=== PATIENT | male | born 1955 | race Caucasian/White ===

== ENCOUNTER → 2017-03-08 14:43 | Emergency (ER) | payer OTHER ==
[~2017-03-08 14:43] MED LIST: diPHENhydraMINE PO* 25 MG PO ONE; predniSONE TAB* 20 MG ONE; predniSONE TAB* 20 MG PO ONE
[2017-03-08 14:49] VITALS: BP 159/91
--- NOTE | 2017-03-08 22:17 | ED ---
Martin Harrison Thomas, scribed for Mariah Holloway MD on 03/08/17 at 1747 . Allergic Reaction/Systemic - HPI Summary HPI Summary: The patient is a 61 year old male presenting to the emergency department with an allergic reaction that began earlier today and is relieved by time of examination in the emergency department. He complains of mild upper lip swelling and facial swelling. He denies tongue swelling, throat tightening, headache, double vision, edema, and shortness of breath. He is on Lisinopril. He took a muscle relaxer yesterday. The patient denies fever, eye erythema, ear ache, chest pain, abdominal pain, dysuria, hematuria, edema, rashes, bruises, anxiety, and depression. - History of Current Complaint Chief Complaint: EDAllergicReaction Time Seen by Provider: 03/08/17 16:52 Hx Obtained From: Patient Onset/Duration: Started hours ago - earlier today, Resolved Timing: Constant, Lasting Minutes Severity Initially: Mild Severity Currently: None Pain Intensity: 0 Pain Scale Used: 0-10 Numeric Location: Discrete @ - face and lips Character: Swelling Alleviating Factor(s): Other - Relieved by time of examination Associated Signs And Symptoms: Positive: Other: - mild upper lip swelling, facial swelling; NEGATIVE: tongue swelling, throat tightening, headache, double vision, edema, and shortness of breath, fever, eye erythema, ear ache, chest pain, abdominal pain, dysuria, hematuria, edema, rashes, bruises, anxiety, and depression. - Allergies/Home Medications Allergies/Adverse Reactions: Allergies Allergy/AdvReac Type Severity Reaction Status Date / Time No Known Allergies Allergy Verified 07/30/13 22:15 PMH/Surg Hx/FS Hx/Imm Hx Endocrine/Hematology History: Reports: Hx Anemia - Pt stated he had blood transfusion. He can't remember why. Denies: Hx Anticoagulant Therapy, Hx Diabetes, Hx Thyroid Disease Cardiovascular History: Reports: Hx Hypercholesterolemia, Hx Hypertension Denies: Hx Pacemaker/ICD Respiratory History: Reports: Other Respiratory Problems/Disorders - current smoker Denies: Hx Asthma, Hx Chronic Obstructive Pulmonary Disease (COPD) GI History: Reports: Hx Gastrointestinal Bleed History: Denies: Hx Renal Disease Musculoskeletal History: Reports: Hx Gout Neurological History: Denies: Hx Dementia, Hx Seizures Psychiatric History: Reports: Hx Anxiety, Hx Substance Abuse - alcohol - Immunization History Date of Tetanus Vaccine: UTD Date of Influenza Vaccine: NO Infectious Disease History: No Infectious Disease History: Reports: Hx Hepatitis - Hep C, remission per patient Denies: Hx Human Immunodeficiency Virus (HIV), Traveled Outside the [place] in Last 30 Days - Family History Known Family History: Positive: Other - Patient denies relevant FHx - Social History Alcohol Use: Daily Alcohol Amount: 6 pack per week Hx Substance Use: No Substance Use Type: Reports: None Hx Tobacco Use: Yes Smoking Status (MU): Current Every Day Smoker Review of Systems Negative: Fever Negative: Erythema Positive: Other - Mild upper lip swelling, facial swelling; NEGATIVE: tongue swelling, throat tightneing. Negative: Ear Ache Negative: Chest Pain Negative: Shortness Of Breath Negative: Abdominal Pain Negative: dysuria, hematuria Negative: Edema Negative: Rash, Bruising Negative: Headache Negative: Anxious, Depressed All Other Systems Reviewed And Are Negative: No Physical Exam - Summary Physical Exam Summary: Appearance: Alert, conversive, nontoxic appearing Skin: Warm, dry, no mottling, no rashes, no contusions HEENT: EOMI, PERRL, moist mucous membranes Neck: No masses on the neck, supple Respiratory: Clear to auscultation, breath sounds present, no rales, no rhonchi , no wheezes Cardiovascular: RRR, pulses are symmetrical in both lower and upper extremities Abdomen: Soft, non-tender Bowel Sounds: Present Musculoskeletal: No CVA tenderness, no obvious deformity, moving all extremities in a grossly normal manner Neurological: A&Ox3, CN II-XII Intact, moving all extremities symmetrically Psychiatric: Normal affect and mood Triage Information Reviewed: Yes Vital Signs On Initial Exam: Initial Vitals Temp Pulse Resp BP Pulse Ox 98.7 F 67 18 159/91 99 03/08/17 14:45 03/08/17 14:45 03/08/17 14:45 03/08/17 14:45 03/08/17 14:45 Vital Signs Reviewed: Yes Diagnostics - Vital Signs Vital Signs Temp Pulse Resp BP Pulse Ox 03/08/17 14:45 98.7 F 67 18 159/91 99 - Laboratory Lab Statement: Any lab studies that have been ordered have been reviewed, and results considered in the medical decision making process. Allergic Reaction Course/Dx - Course Assessment/Plan: Patient had mild swelling to the upper lip. He will be discharged home to follow up regarding his Lisinopril. He was instructed to stop taking his Lisinopril. - Diagnoses Provider Diagnoses: Allergic reaction Discharge - Discharge Plan Condition: Stable Disposition: HOME Prescriptions: Prednisone 60 mg PO DAILY #12 tab Patient Education Materials: General Allergic Reaction (ED) Referrals: No Primary Care Phys,NOPCP [Primary Care Provider] - Additional Instructions: stop taking lisinopril. discuss with your doctor other medications for high blood pressure. take the benadryl and prednisone as instructed. return if worse or any new symptoms. It is important to follow up with your primary care physician. The documentation as recorded by the Martin canseco Thomas accurately reflects the service I personally performed and the decisions made by me, Mariah Holloway MD.
== END | disposition home or self-care (01) ==
LOC: ED 14:43
DX: T78.40XA Allergy, unspecified, initial encounter (principal); F17.200 Nicotine dependence, unspecified, uncomplicated
CPT/HCPCS: 99282; J7512

== ENCOUNTER 2017-08-04 17:06 | Observation (INO) | payer OTHER ==
[2017-08-04] MEDS ORDERED: NS 0.9% 1000 ML* 1,000 ML IV ONE (17:28)
[2017-08-04 17:45] LABS: ABS Basophils 0 10^3/ul (0-0.2); ABS Eosinophils 0 10^3/ul (0-0.6); ABS Lymphocytes 0.6 10^3/ul (1.0-4.8); ABS Monocytes 0.8 10^3/ul (0-0.8); ABS Neutrophils 4.7 10^3/ul (1.5-7.7); ABS Nucleated RBC 0 10^3/ul; Eosinophil % 0.5 % (0-6); Hematocrit 36 % (42-52); Hemoglobin 12.1 g/dl (14.0-18.0); Lymphocyte % 9.9 % (25-47); Mean Corpuscular HGB Conc 34 g/dl (31-36); Mean Corpuscular Hemoglobin 29 pg (27-31); Mean Corpuscular Volume 84 fL (80-94); Mean Platelet Volume 8.6 um3 (7.4-10.4); Nucleated Red Blood Cells % 0.1; Platelet Count 155 10^3/ul (150-450); Red Blood Count 4.24 10^6/ul (4.00-5.40); Red Cell Distribution Width 16 % (10.5-15); White Blood Count 6.1 10^3/ul (3.5-10.8)
[2017-08-04 17:54] LABS: INR 0.95 (0.77-1.02)
[2017-08-04 18:01] LABS: EGFR Non-African American 95.8 (>60)
--- NOTE | 2017-08-04 18:43 | RAD ---
INDICATION: Upper abdominal pain. Recent gallbladder sonogram in the straightening cholelithiasis COMPARISON: Complete abdominal sonogram June 15, 2017 TECHNIQUE: Longitudinal and transverse scans of the right upper quadrant were obtained. Doppler interrogation of the hepatic and portal venous system was performed. FINDINGS: Liver: The liver is normal in size. There is increased echogenicity compatible with hepatic steatosis. There are no focal masses. The liver measures 17.1 cm in cephalocaudal dimension. Vessels: There is normal hepatic and portal venous flow. Bile ducts: There is no evidence of intrahepatic or extrahepatic ductal dilatation. The common duct measures 0.5 cm. Gallbladder: There is cholelithiasis with a dominant gallstone which may be stuck in the neck of the gallbladder. There is also small amount of biliary sludge. The gallbladder wall is thickened measuring 0.7 cm. The patient is tender over the gallbladder. Pancreas: The visualized pancreas appears normal Right kidney: The right kidney is normal in size and echogenicity. There are no masses or calculi. There is no evidence of hydronephrosis. The right kidney measures 10.3 x 5.2 x 5.3 cm. IVC and aorta: The aorta and superior vena cava appear normal. Fluid: There is no ascites. Other: None. IMPRESSION: CHOLELITHIASIS WITH SONOGRAPHIC FINDINGS SUGGESTIVE OF ACUTE CHOLECYSTITIS
[2017-08-04 19:43] LABS: Urine Appearance Clear; Urine Blood 1+ (Negative); Urine Color Straw; Urine Ketones Negative (Negative); Urine Protein Negative (Negative); Urine Red Blood Cell Trace(0-2/hpf) (Absent); Urine Specific Gravity 1.002 (1.010-1.030); Urine Urobilinogen Negative (Negative); Urine White Blood Cell Trace(0-5/hpf) (Absent)
[2017-08-04] MEDS ORDERED: Metoclopramide IV* 5 MG/ML 2 ML VIAL IV ONE (19:47)
[2017-08-04] MEDS ORDERED: Morphine VIAL* 4 MG/ML VIAL (1 ml vial) IV ONE (19:47)
[2017-08-04] MEDS ORDERED: Ondansetron 40 MG VIAL* 2 MG/ML 20 ML VIAL IV PRN (20:03)
[2017-08-04] MEDS ORDERED: Zosyn per Pharmacy* NOTE FOLLOW UP PRN (20:54)
[2017-08-04] MEDS ORDERED: Zosyn 3.375 GM IV - ED ONCE IVPB ONE ×2 (21:00)
[2017-08-04] MEDS ORDERED: Piperacillin/Tazobactam VIAL*) 3.375 GM in NS 0.9% 100 ML* 100 ML IVPB SCH (21:00)
--- NOTE | 2017-08-04 21:22 | ED ---
Jose Ramon Harrison Natalie, scribed for Nina Crowder MD on 08/04/17 at 1813 . Abdominal Pain/Male - HPI Summary HPI Summary: The patient is a 61 y/o M presenting to [facility] c/o RUQ abd pain starting 07/30/17 and worsening into today. The pain started in his LUQ, subsided a few days later , and then moved towards the umbilical and RUQ region of his abd with worse pain than before. He describes the pain as a stabbing pain that is rated 10/10 in severity. He took Pepto Bismol to no relief. He has had normal flatulence. He denies fever, chills, nausea, vomiting, and diarrhea. He has not had a decreased in appetite, but he last ate pie and milk at 10:00 this morning. The pt's last bowel movement was yesterday, although he normally goes everyday. He denies any similar experiences with this type of pain. - History of Current Complaint Chief Complaint: EDAbdPain Stated Complaint: ABD PAIN Hx Obtained From: Patient Onset/Duration: Sudden Onset, Lasting Days, Still Present Timing: Lasting Days Severity Initially: Moderate Severity Currently: Severe Pain Intensity: 10 Pain Scale Used: 0-10 Numeric Location: Discrete At: RUQ Radiates: No Character: Sharp Aggravating Factor(s): Nothing Alleviating Factor(s): Nothing Associated Signs And Symptoms: Positive: Negative - chills. Negative: Fever, Decreased Appetite, Nausea, Vomiting, Diarrhea - Allergies/Home Medications Allergies/Adverse Reactions: Allergies Allergy/AdvReac Type Severity Reaction Status Date / Time No Known Allergies Allergy Verified 07/30/13 22:15 Home Medications: Home Medications NK [No Home Medications Reported] 08/04/17 [History Confirmed 08/04/17] PMH/Surg Hx/FS Hx/Imm Hx Endocrine/Hematology History: Reports: Hx Anemia - Pt stated he had blood transfusion. He can't remember why. Denies: Hx Anticoagulant Therapy, Hx Diabetes, Hx Thyroid Disease Cardiovascular History: Reports: Hx Hypercholesterolemia, Hx Hypertension Denies: Hx Pacemaker/ICD Respiratory History: Reports: Other Respiratory Problems/Disorders - current smoker Denies: Hx Asthma, Hx Chronic Obstructive Pulmonary Disease (COPD) GI History: Reports: Hx Gastrointestinal Bleed History: Denies: Hx Renal Disease Musculoskeletal History: Reports: Hx Gout Neurological History: Denies: Hx Dementia, Hx Seizures Psychiatric History: Reports: Hx Anxiety, Hx Substance Abuse - alcohol - Immunization History Date of Tetanus Vaccine: UTD Date of Influenza Vaccine: NO Infectious Disease History: No Infectious Disease History: Reports: Hx Hepatitis - Hep C, remission per patient Denies: Hx Human Immunodeficiency Virus (HIV), Traveled Outside the [place] in Last 30 Days - Family History Known Family History: Negative: Cardiac Disease, Hypertension, Diabetes - Social History Alcohol Use: Daily Alcohol Amount: 6 pack per week Hx Substance Use: No Substance Use Type: Reports: None Hx Tobacco Use: Yes Smoking Status (MU): Current Every Day Smoker Review of Systems Negative: Fever, Chills Positive: Abdominal Pain - RUQ. Negative: Vomiting, Diarrhea, Nausea All Other Systems Reviewed And Are Negative: Yes Physical Exam - Summary Physical Exam Summary: Appearance: Well-appearing, Well-nourished Skin: Warm Eyes: Normal ENT: Normal Neck: Supple, nontender Respiratory: Clear to auscultation Cardiovascular: Regular rate, regular rhythm. Normal S1, S2. Abdomen: Moderate to severe RUQ tenderness with mild rebound and gaurding, hypoactive bowel sounds in all quadrants Musculoskeletal: Normal, Strength/ROM Intact Neurological: Normal, A&Ox3 Psychiatric: Normal General: No acute distress Triage Information Reviewed: Yes Vital Signs On Initial Exam: Initial Vitals Temp Pulse Resp BP Pulse Ox 98 F 64 20 154/95 96 08/04/17 17:12 08/04/17 17:12 08/04/17 17:12 08/04/17 17:12 08/04/17 17:12 Vital Signs Reviewed: Yes Diagnostics - Vital Signs Vital Signs Temp Pulse Resp BP Pulse Ox 08/04/17 17:12 98 F 64 20 154/95 96 - Laboratory Lab Results: Lab Results 08/04/17 08/04/17 Range/Units 17:36 17:36 WBC 6.1 (3.5-10.8) 10^3/ul RBC 4.24 (4.00-5.40) 10^6/ul Hgb 12.1 L (14.0-18.0) g/dl Hct 36 L (42-52) % MCV 84 (80-94) fL MCH 29 (27-31) pg MCHC 34 (31-36) g/dl RDW 16 H (10.5-15) % Plt Count 155 (150-450) 10^3/ul MPV 8.6 (7.4-10.4) um3 Neut % (Auto) 76.9 (38-83) % Lymph % (Auto) 9.9 L (25-47) % Petroleum % (Auto) 12.4 H (0-7) % Eos % (Auto) 0.5 (0-6) % Baso % (Auto) 0.3 (0-2) % Absolute Neuts (auto) 4.7 (1.5-7.7) 10^3/ul Absolute Lymphs (auto) 0.6 L (1.0-4.8) 10^3/ul Absolute Monos (auto) 0.8 (0-0.8) 10^3/ul Absolute Eos (auto) 0 (0-0.6) 10^3/ul Absolute Basos (auto) 0 (0-0.2) 10^3/ul Absolute Nucleated RBC 0 10^3/ul Nucleated RBC % 0.1 INR (Anticoag Therapy) 0.95 (0.77-1.02) APTT 39.7 H (26.0-36.3) seconds Result Diagrams: 08/04/17 17:36 08/04/17 17:36 Lab Statement: Any lab studies that have been ordered have been reviewed, and results considered in the medical decision making process. - Ultrasound No standard instances Ultrasound Interpretation: Positive (See Comments) - Gallbladder US: Cholelithiasis with sonographic findings suggestive of acute cholecystitis. ED physician has reviewed this report. Ultrasound Interpretation Completed By: Radiologist Abdominal Pain Fem Course/Dx - Course Assessment/Plan: RUQ pain- sono showed acute cholecystitis and dominant stone stuck in neck of GB, GB wall is 0.7cm - Diagnoses Provider Diagnoses: Acute cholecystitis due to biliary calculus - Provider Notifications Discussed Care Of Patient With: Jorge Luis Garcia Time Discussed With Above Provider: 19:37 - I spoke with Dr. Garcia about the pt 's US results. He agreed to admit the pt for cholecystitis. Discharge - Sign-Out/Discharge Documenting (check all that apply): Discharge/Admit/Transfer - Dr. Garcia accepts the pt for admission to [facility] [place] Discharge Plan Condition: Stable Disposition: ADMITTED TO [facility] Referrals: Wendie Seymour, CLAM SHUCKING MACHINE TENDER [Primary Care Provider] - - Billing Disposition and Condition Condition: STABLE Disposition: Admitted to [facility] The documentation as recorded by the Jose Ramon canseco Natalie accurately reflects the service I personally performed and the decisions made by , Nina Crowder MD.
[2017-08-04] MEDS: NS 0.9% 1000 ML* 1,000 ML IV SCH (22:09)
[2017-08-04] MEDS: HYDROmorphone INJ* 2 MG/ML CARPUJECT SYRINGE IV PRN ×2 (22:29→23:34)
--- NOTE | 2017-08-04 22:29 | HP ---
CC: Wendie Seymour NP in [place] * HISTORY AND PHYSICAL: DATE OF ADMISSION: 08/04/17 CHIEF COMPLAINT: Abdominal pain. HISTORY OF PRESENT ILLNESS: The patient is a 61-year-old male who has had intermittent right upper quadrant abdominal pain for the last week and then over the last 24 hours or so, it is becoming increasingly intense, and he therefore reported to the emergency room. He has had no nausea, no vomiting, no change in the color of the stool or urine. He does not think he has had excessive gassiness, belching, or bloating. He has not had radiation of the pain to the back or elsewhere. He has not had fever or chills. No accident, injury, or trauma. PAST MEDICAL HISTORY: His past medical history, he quotes, is quite benign. He denies any chronic medical illnesses. Denies prior surgeries. He does admit to some arthritis. MEDICATIONS: He denies regular medications. ALLERGIES: Denies medical allergies. SOCIAL HISTORY: He is here with his significant other. He works as a bench scientist. He smokes regularly. He gave up drinking and drugs years ago. FAMILY HISTORY: Noncontributory. REVIEW OF SYSTEMS: Negative for chest pain, heart pain, angina pain, or heart attack. No emphysema, bronchitis, or chronic lung disease. He denies hepatitis , jaundice, or previous biliary disease. He denies any gastrointestinal disease. No ulcers or Crohn's disease or other chronic issues. He denies disease. No dysuria or kidney stones or kidney infections in the past. He does admit to arthritis in his knees. He sometimes takes nonsteroidal if he has pain. The neuromuscular history is benign other than that and the neuropsych history is benign. PHYSICAL EXAMINATION GENERAL: He is a well-developed, well-nourished, slender gentleman, appears a little older than stated age. VITAL SIGNS: Show a temperature of 98, heart rate 64, regular; respirations 20 , unlabored; O2 saturation 96%; blood pressure 154/95. NECK: Without any adenopathy. LUNGS: Relatively clear. He has a few little inspiratory wheezes; it sounds more like upper airway. HEART: Regular. No abnormal sounds. ABDOMEN: Soft. Exquisitely tender in the right subcostal region with positive Trivedi's sign. No rebound tenderness. No palpable masses or hernias. Bowel sounds are somewhat decreased. EXTREMITIES: Well perfused and without edema. SKIN: Warm, well perfused. He is not diaphoretic. He is not jaundiced. DIAGNOSTIC STUDIES/LAB DATA: Laboratory studies show normal white blood count , hemoglobin is 12.1, platelet count 155. He does have a left shift. INR is normal. Chemistries showed normal electrolytes. Lactic acid somewhat elevated at 2.2 and bilirubin is normal. Alkaline phosphatase is elevated at 289. C- reactive protein is 60. He has had a gallbladder ultrasound, which shows acute inflammation of the gallbladder with quite a bit of tenderness and what appears to be a stone possibly impacted in the neck of the gallbladder. IMPRESSION: A 61-year-old male who has had some drinking and drug use in the past, but claims to be clean for a quite while now, who has evidence of acute cholecystitis and cholelithiasis. I discussed this with him, and given the level of his pain and the acute inflammation, I think he needs to come in the hospital for pain medicine and antibiotics and he will need a laparoscopic cholecystectomy. He understands all these issues and is agreeable to that approach. [id number]/[facility] #: [id number] PAUL
[2017-08-05] MEDS: Piperacillin/Tazobactam VIAL*) 3.375 GM in NS 0.9% 100 ML* 100 ML IVPB SCH ×3 (01:46→17:10)
[2017-08-05] MEDS: HYDROmorphone INJ* 2 MG/ML CARPUJECT SYRINGE IV PRN ×4 (01:50→08:00)
[2017-08-05] MEDS ORDERED: HYDROmorphone INJ* 2 MG/ML CARPUJECT SYRINGE ONE (02:08)
[2017-08-05 05:47] LABS: Hematocrit 35 % (42-52); Hemoglobin 11.8 g/dl (14.0-18.0); Mean Corpuscular HGB Conc 34 g/dl (31-36); Mean Corpuscular Hemoglobin 28 pg (27-31); Mean Corpuscular Volume 85 fL (80-94); Mean Platelet Volume 8.9 um3 (7.4-10.4); Platelet Count 154 10^3/ul (150-450); Red Blood Count 4.14 10^6/ul (4.00-5.40); Red Cell Distribution Width 17 % (10.5-15); White Blood Count 8.9 10^3/ul (3.5-10.8)
[2017-08-05 05:51] LABS: ABS Nucleated RBC 0 10^3/ul; Eosinophil % 1.7 % (0-6); Lymphocyte % 11.9 % (25-47); Nucleated Red Blood Cells % 0.1
[2017-08-05 05:52] LABS: ABS Basophils 0 10^3/ul (0-0.2); ABS Eosinophils 0.2 10^3/ul (0-0.6); ABS Lymphocytes 1.1 10^3/ul (1.0-4.8); ABS Monocytes 0.9 10^3/ul (0-0.8); ABS Neutrophils 6.7 10^3/ul (1.5-7.7)
[2017-08-05 06:05] LABS: EGFR Non-African American 106.2 (>60)
[2017-08-05] MEDS: NS 0.9% 1000 ML* 1,000 ML IV SCH ×2 (06:42→17:51)
[2017-08-05] MEDS ORDERED: fentaNYL* 50 MCG/ML 2 ML VIAL (100 MCG VIAL) ONE (12:04)
[2017-08-05] MEDS ORDERED: Midazolam* 1 MG/ML 5 ML VIAL (5 MG) ONE (12:05)
[2017-08-05] MEDS ORDERED: Atracurium* 10 MG/ML 10 ML VIAL ONE (12:05)
[2017-08-05] MEDS ORDERED: Bupivacaine 0.5% SDV PF* 30ML VIAL ONE (12:45)
[2017-08-05] MEDS ORDERED: Propofol* 10 MG/ML 20 ML BTL IV PUSH ONE (13:31)
[2017-08-05] MEDS ORDERED: Dexamethasone IV* 4 MG/ML 1 ML (4 MG) ONE (13:31)
[2017-08-05] MEDS ORDERED: Glycopyrrolate IV* 0.2 MG/ML 1 ML VIAL ONE (13:31)
[2017-08-05] MEDS ORDERED: Ropivacaine (OR use only) 2 MG/ML 10 ML ONE (13:31)
[2017-08-05] MEDS ORDERED: PROCHLORPERAZINE INJ 5 MG/ML 2 ML VIAL ONE (13:31)
[2017-08-05] MEDS ORDERED: oxyCODONE/Acetamin 5/325 MG* TAB PO PRN (13:33)
[2017-08-05] MEDS ORDERED: Naloxone* 0.4 MG/ML 1 ML VIAL IV PRN (13:33)
[2017-08-05] MEDS ORDERED: Morphine INJ* 2 MG/ML 1 ML CARPUJECT IV PRN (13:33)
[2017-08-05] MEDS ORDERED: fentaNYL* 50 MCG/ML 2 ML VIAL (100 MCG VIAL) IV PRN (13:33)
[2017-08-05] MEDS ORDERED: DiMENhydriNATE IV* 50 MG/ML VIAL IV PUSH PRN (13:33)
[2017-08-05] MEDS ORDERED: Lidocaine 2% PF * 5 ML VIAL ONE (13:39)
[2017-08-05] MEDS ORDERED: Neostigmine Methylsulfate* 1 MG/ML 10 ML VIAL (1 mg/ml) ONE (13:39)
[2017-08-05] MEDS ORDERED: Labetalol IV* 5 MG/ML 20 ML VIAL ONE (14:13)
[2017-08-05] MEDS ORDERED: oxyCODONE/Acetamin 5/325 MG* TAB ONE (17:42)
[2017-08-05] MEDS: oxyCODONE/Acetamin 5/325 MG* TAB PO PRN (21:04)
--- NOTE | 2017-08-05 22:00 | OP ---
CC: Wendie Seymour NP * DATE OF OPERATION: 08/05/17 - ROOM #351 DATE OF : 57 SURGEON: Jorge Luis Garcia MD TELEPHONE INSTRUMENT SUPERVISOR: None. ANESTHESIOLOGIST: Dr. Cantrell. ANESTHESIA: General anesthetic, local infiltration by the surgeon. PRE-OP DIAGNOSIS: Acute cholecystitis. POST-OP DIAGNOSIS: Acute cholecystitis. OPERATIVE PROCEDURE: Laparoscopic cholecystectomy. COMPLICATIONS: There were no complications. DRAINS: Luis Díaz. COUNTS: Sponge and instrument counts correct. ESTIMATED BLOOD LOSS: 100 mL. DESCRIPTION OF PROCEDURE: The patient was supine on the operative table. After adequate general anesthetic, compression stockings, Marie Hugger warmer, intravenous antibiotics, the abdomen was clipped and prepped with antiseptic, draped in a sterile fashion. Local infiltrative anesthesia was administered. A small umbilical incision was created. Bluntport cannula was placed. Insufflation was carried out with a carbon dioxide. Additional cannulae, 12 mm subxiphoid and 5 mm right upper quadrant, right anterior axillary line and placed through a small stab wounds under direct vision. The gallbladder was acutely inflamed. The omentum was peeled off of it. There was some fibrinous exudate. The gallbladder was drained of its bile. This was suctioned out and there was a lot of inflammation down at the neck of the gallbladder, so it was decided to do a top down dissection. The plane along the liver bed was inflammatory, so an actually kind of peeled off reasonably well until I was able to isolate the cystic artery and cystic duct, which were both clipped and divided. The gallbladder and the large stone were placed in retrieval bags and brought out through the epigastric site. The operative field was well irrigated with warm saline solution, free fluid was suctioned out. A VIKAS drain was placed into the abdomen and brought out through the lateral stab wound and placed down into the gutter. Hemostasis was eventually obtained with recurrent irrigation and some cautery until everything was in good condition. The cannulas were then removed. Pneumoperitoneum allowed to escape. The VIKAS drain was sewed in place using 3-0 Prolene. The two larger incisions had the fascia closed with 0 Vicryl and the skin in all cases with 5-0 Vicryl followed by Steri -Strips. He tolerated the procedure well, was brought to Recovery in good condition. Note, this procedure was substantially more difficult in time consuming than usual taking over twice normal time. [id number]/[facility] #: [id number] PAUL
[2017-08-06] MEDS: HYDROmorphone INJ* 2 MG/ML CARPUJECT SYRINGE IV PRN ×2 (00:07→06:24)
[2017-08-06] MEDS: NS 0.9% 1000 ML* 1,000 ML IV SCH (01:40)
[2017-08-06] MEDS: Piperacillin/Tazobactam VIAL*) 3.375 GM in NS 0.9% 100 ML* 100 ML IVPB SCH ×2 (01:45→10:16)
[2017-08-06] MEDS: oxyCODONE/Acetamin 5/325 MG* TAB PO PRN (04:36)
[2017-08-06] MEDS ORDERED: oxyCODONE/Acetamin 5/325 MG* TAB PO PRN (08:47)
--- NOTE | 2017-08-06 09:48 | PN ---
Progress Note - Progress Note Date of Service: 08/06/17 SOAP: Subjective:POD#1 S/P LAP CHOLECYSTECTOMY eating solids;pain controlled with po meds;walking;voiding large [] Objective:afeb;VSS;lungs:clear;heart:RRR;abd:+bs,soft;VIKAS drain serosang,no obvious bile;VIKAS removed with ease;incisions intact with steristrips,no erythema or drainage;ext:nontender calves [] Assessment:stable;ok for discharge per Dr Garcia [] Plan:discharge home today ,instructions reviewed;rx for Percocet 5/325mg sent to [facility];office visit 08/14/17 []
--- NOTE | 2017-08-06 11:32 | DS ---
DATE OF ADMISSION: 08/04/2017. DATE OF DISCHARGE: 08/06/2017. PRINCIPAL ADMITTING DIAGNOSIS: Acute cholecystitis. OPERATIVE PROCEDURE ON THIS ADMISSION: Laparoscopic cholecystectomy. COMPLICATIONS: None. HOSPITAL COURSE: The patient came to the hospital the evening of 08/04/2017 with evidence of acute cholecystitis. He was admitted and given intravenous antibiotics and the following day was taken to the operating room for laparoscopic cholecystectomy. He had severe acute cholecystitis and had a Luis-Díaz drain left at the end of the procedure. He was maintained on intravenous antibiotics and on 08/06/2017 the Luis-Díaz drain was removed and he will be discharged. He is making satisfactory recovery. His vital signs are good. He is afebrile. He is tolerating oral intake and voiding well. He is discharged home with instructions and will follow-up in the office in approximately a week. [id number]/[facility] #: [id number] MTDTrey
[2017-08-06 11:40] VITALS: BP 138/77
== END 2017-08-06 13:30 | disposition home or self-care (01) ==
LOC: ED 17:06 → SSU 20:03
PROVIDERS: ADMIT Surgery; ATTEND Surgery
PROC: 0FT44ZZ Resection of Gallbladder, Percutaneous Endoscopic Approach (ICD-10-PCS; principal; 2017-08-04)
DX: K80.00 Calculus of gallbladder with acute cholecystitis without obstruction (principal); R10.11 Right upper quadrant pain; F17.210 Nicotine dependence, cigarettes, uncomplicated; I10 Essential (primary) hypertension
CPT/HCPCS: 36415; 76705; 80053; 81003; 81015; 83605; 83690; 83735; 84443; 84484; 85025; 85610; 85730; 86140; 87086; 88304; 96374; 96375; 99283; 99406; A9270-GY; G0378; J0780; J1100; J1170; J2250; J2270; J2543; J2704; J2710; J2765; J2795; J3010

== ENCOUNTER 2017-08-07 23:42 | Inpatient (IN) | payer OTHER ==
[2017-08-08] MEDS ORDERED: HYDROmorphone INJ* 2 MG/ML CARPUJECT SYRINGE IV SLOW PU ONE ×4 (01:26→14:38)
[2017-08-08] MEDS ORDERED: Metoclopramide IV* 5 MG/ML 2 ML VIAL IV ONE (01:26)
[2017-08-08] MEDS ORDERED: NS 0.9% 1000 ML* 1,000 ML IV ONE (01:26)
[2017-08-08 02:06] LABS: Urine Appearance Clear; Urine Blood 1+ (Negative); Urine Color Yellow; Urine Ketones Negative (Negative); Urine Protein Negative (Negative); Urine Red Blood Cell Trace(0-2/hpf) (Absent); Urine Specific Gravity 1.017 (1.010-1.030); Urine Urobilinogen Negative (Negative); Urine White Blood Cell Absent (Absent)
[2017-08-08 02:13] LABS: ABS Basophils 0 10^3/ul (0-0.2); ABS Eosinophils 0.1 10^3/ul (0-0.6); ABS Lymphocytes 1.5 10^3/ul (1.0-4.8); ABS Monocytes 0.8 10^3/ul (0-0.8); ABS Neutrophils 8.1 10^3/ul (1.5-7.7); ABS Nucleated RBC 0 10^3/ul; Eosinophil % 1.1 % (0-6); Hematocrit 33 % (42-52); Hemoglobin 11.1 g/dl (14.0-18.0); Lymphocyte % 14.2 % (25-47); Mean Corpuscular HGB Conc 34 g/dl (31-36); Mean Corpuscular Hemoglobin 29 pg (27-31); Mean Corpuscular Volume 84 fL (80-94); Mean Platelet Volume 8.9 um3 (7.4-10.4); Nucleated Red Blood Cells % 0.1; Platelet Count 250 10^3/ul (150-450); Red Cell Distribution Width 17 % (10.5-15); White Blood Count 10.5 10^3/ul (3.5-10.8)
[2017-08-08 02:22] LABS: INR 0.99 (0.77-1.02)
[2017-08-08 02:31] LABS: EGFR Non-African American 89.5 (>60)
[2017-08-08] MEDS ORDERED: Potassium Chlor TAB* 20 MEQ TAB.ER PO ONE (02:45)
[2017-08-08] MEDS ORDERED: Iohexol 300* (CONTRAST) 10 ML SDV IV ONE (02:54)
--- NOTE | 2017-08-08 07:07 | ED ---
Amor Harrison Jacob, scribed for Joseph Michael MD on 08/08/17 at 0447 . Abdominal Pain/Male - HPI Summary HPI Summary: Pt is a 61 y/o male c/o right abdominal pain suddenly onsetting this morning. Pain radiates to right posterior neck and right shoulder, is described as severe , and rated 10/10. He claims pain does not worsen w/ lifting. He reports his last bowel movement was four days ago and denies fever, nausea, and abnormal gaseousness. PSHx of cholecystectomy this week and was discharged home w/ pain medication. Per triage, pt reports taking 5/325 mg at 1900 which provided no relief. - History of Current Complaint Chief Complaint: EDAbdPain Stated Complaint: ABD PAIN Time Seen by Provider: 08/08/17 01:07 Hx Obtained From: Patient Onset/Duration: Sudden Onset, Lasting Hours - onset today in the morning, Still Present Severity Currently: Severe Pain Intensity: 10 Pain Scale Used: 0-10 Numeric - 10/10 Location: Other - right sided Radiates: Yes Radiates to: Other - right shoulder and right posterior neck pain Aggravating Factor(s): Nothing Alleviating Factor(s): Nothing Associated Signs And Symptoms: Positive: Constipation - last bowel movement 4 days ago, Other - NEGATIVE: abnormal gaseousness. Negative: Fever, Nausea - Allergies/Home Medications Allergies/Adverse Reactions: Allergies Allergy/AdvReac Type Severity Reaction Status Date / Time No Known Allergies Allergy Verified 08/07/17 23:48 PMH/Surg Hx/FS Hx/Imm Hx Endocrine/Hematology History: Reports: Hx Anemia - Pt stated he had blood transfusion. He can't remember why. Denies: Hx Anticoagulant Therapy, Hx Diabetes, Hx Thyroid Disease Cardiovascular History: Reports: Hx Hypercholesterolemia, Hx Hypertension Denies: Hx Pacemaker/ICD Respiratory History: Reports: Other Respiratory Problems/Disorders - current smoker Denies: Hx Asthma, Hx Chronic Obstructive Pulmonary Disease (COPD) GI History: Reports: Hx Gastrointestinal Bleed History: Denies: Hx Acute Renal Failure, Hx Benign Prostatic Hyperplasia, Hx Chronic Renal Failure, Hx Dialysis, Hx Kidney Infection, Hx Kidney Stones, Hx Renal Disease, Other Problems/Disorders Musculoskeletal History: Reports: Hx Gout Sensory History: Reports: Hx Contacts or Glasses Denies: Hx Eye Injury, Hx Eye Prosthesis, Hx Glaucoma, Hx Legally Blind, Hx Macular Degeneration, Hx Vision Problem, Hx Hearing Aid Opthamlomology History: Reports: Hx Contacts or Glasses Denies: Hx Eye Injury, Hx Eye Prosthesis, Hx Glaucoma, Hx Legally Blind, Hx Macular Degeneration, Hx Vision Problem Neurological History: Denies: Hx Dementia, Hx Seizures Psychiatric History: Reports: Hx Anxiety, Hx Substance Abuse - alcohol - Surgical History Hx Anesthesia Reactions: No - Immunization History Date of Tetanus Vaccine: UTD Date of Influenza Vaccine: NO Infectious Disease History: No Infectious Disease History: Reports: Hx Hepatitis - Hep C, remission per patient Denies: Hx Human Immunodeficiency Virus (HIV), Traveled Outside the [place] in Last 30 Days - Family History Known Family History: Negative: Cardiac Disease, Hypertension, Diabetes - Social History Alcohol Use: Rare Alcohol Amount: 6 pack per week Hx Substance Use: No Substance Use Type: Reports: None Hx Tobacco Use: Yes Smoking Status (MU): Current Every Day Smoker Review of Systems Negative: Fever Positive: Abdominal Pain - right side. Negative: Nausea Positive: other - Constipation. NEGATIVE: abnormal gaseousness Positive: Other - right posterior neck pain and right shoulder pain All Other Systems Reviewed And Are Negative: Yes Physical Exam - Summary Physical Exam Summary: VITAL SIGNS: Reviewed. GENERAL: Patient is a well-developed and nourished male who is lying comfortable in the stretcher. Patient is not in any acute respiratory distress. HEAD AND FACE: No signs of trauma. No ecchymosis, hematomas or skull depressions. No sinus tenderness. EYES: PERRLA, EOMI x 2, No injected conjunctiva, no nystagmus. EARS: Hearing grossly intact. Ear canals and tympanic membranes are within normal limits. MOUTH: Oropharynx within normal limits. NECK: Supple, trachea is midline, no adenopathy, no JVD, no carotid bruit, no c- spine tenderness, neck with full ROM. CHEST: Symmetric, no tenderness at palpation LUNGS: Clear to auscultation bilaterally. No wheezing or crackles. CVS: Regular rate and rhythm, S1 and S2 present, no murmurs or gallops appreciated. ABDOMEN: Soft, diffuse abdominal tenderness on right side. Distention. No rebound no guarding, and no masses palpated. Bowel sounds are hypoactive. EXTREMITIES: FROM in all major joints, no edema, no cyanosis or clubbing. NEURO: Alert and oriented x 3. No acute neurological deficits. Speech is normal and follows commands. SKIN: Dry and warm Triage Information Reviewed: Yes Vital Signs On Initial Exam: Initial Vitals Temp Pulse Resp BP Pulse Ox 97.7 F 79 20 160/97 96 08/07/17 23:45 08/07/17 23:45 08/07/17 23:45 08/07/17 23:45 08/07/17 23:45 Vital Signs Reviewed: Yes Diagnostics - Vital Signs Vital Signs Temp Pulse Resp BP Pulse Ox 08/08/17 02:38 81 167/106 91 08/08/17 02:08 79 173/99 90 08/08/17 02:00 82 91 08/08/17 01:54 83 173/107 94 08/08/17 01:50 20 08/08/17 01:38 80 179/105 95 08/08/17 01:09 86 96 08/07/17 23:45 97.7 F 79 20 160/97 96 - Laboratory Lab Results: Lab Results 08/08/17 08/08/17 08/08/17 Range/Units 01:36 01:36 01:36 WBC 10.5 (3.5-10.8) 10^3/ul RBC 3.90 L (4.00-5.40) 10^6/ul Hgb 11.1 L (14.0-18.0) g/dl Hct 33 L (42-52) % MCV 84 (80-94) fL MCH 29 (27-31) pg MCHC 34 (31-36) g/dl RDW 17 H (10.5-15) % Plt Count 250 (150-450) 10^3/ul MPV 8.9 (7.4-10.4) um3 Neut % (Auto) 76.7 (38-83) % Lymph % (Auto) 14.2 L (25-47) % [place] % (Auto) 7.7 H (0-7) % Eos % (Auto) 1.1 (0-6) % Baso % (Auto) 0.3 (0-2) % Absolute Neuts (auto) 8.1 H (1.5-7.7) 10^3/ul Absolute Lymphs (auto) 1.5 (1.0-4.8) 10^3/ul Absolute Monos (auto) 0.8 (0-0.8) 10^3/ul Absolute Eos (auto) 0.1 (0-0.6) 10^3/ul Absolute Basos (auto) 0 (0-0.2) 10^3/ul Absolute Nucleated RBC 0 10^3/ul Nucleated RBC % 0.1 INR (Anticoag Therapy) 0.99 (0.77-1.02) APTT 34.8 (26.0-36.3) seconds Sodium 139 (135-145) mmol/L Potassium 3.2 L (3.5-5.0) mmol/L Chloride 100 L (101-111) mmol/L Carbon Dioxide 30 (22-32) mmol/L Anion Gap 9 (2-11) mmol/L BUN 13 (6-24) mg/dL Creatinine 0.87 (0.67-1.17) mg/dL Est GFR ( Amer) 108.3 (>60) Est GFR (Non-Af Amer) 89.5 (>60) BUN/Creatinine Ratio 14.9 (8-20) Glucose 99 (70-100) mg/dL Lactic Acid (0.5-2.0) mmol/L Calcium 9.5 (8.6-10.3) mg/dL Magnesium 1.5 L (1.9-2.7) mg/dL Total Bilirubin 0.70 (0.2-1.0) mg/dL AST 21 (13-39) U/L ALT 17 (7-52) U/L Alkaline Phosphatase 150 H (34-104) U/L C-Reactive Protein 84.18 H (<8.01) mg/L Total Protein 7.5 (6.4-8.9) g/dL Albumin 3.3 (3.2-5.2) g/dL Globulin 4.2 H (2-4) g/dL Albumin/Globulin Ratio 0.8 L (1-3) Amylase 15 L (29-103) U/L Lipase < 10 L (11.0-82.0) U/L Urine Color Urine Appearance Urine pH (5-9) Ur Specific [place] (1.010-1.030) Urine Protein (Negative) Urine Ketones (Negative) Urine Blood (Negative) Urine Nitrate (Negative) Urine Bilirubin (Negative) Urine Urobilinogen (Negative) Ur Leukocyte Esterase (Negative) Urine WBC (Auto) (Absent) Urine RBC (Auto) (Absent) Urine Bacteria (Absent) Urine Glucose (Negative) 08/08/17 08/08/17 Range/Units 01:36 01:55 WBC (3.5-10.8) 10^3/ul RBC (4.00-5.40) 10^6/ul Hgb (14.0-18.0) g/dl Hct (42-52) % MCV (80-94) fL MCH (27-31) pg MCHC (31-36) g/dl RDW (10.5-15) % Plt Count (150-450) 10^3/ul MPV (7.4-10.4) um3 Neut % (Auto) (38-83) % Lymph % (Auto) (25-47) % [place] % (Auto) (0-7) % Eos % (Auto) (0-6) % Baso % (Auto) (0-2) % Absolute Neuts (auto) (1.5-7.7) 10^3/ul Absolute Lymphs (auto) (1.0-4.8) 10^3/ul Absolute Monos (auto) (0-0.8) 10^3/ul Absolute Eos (auto) (0-0.6) 10^3/ul Absolute Basos (auto) (0-0.2) 10^3/ul Absolute Nucleated RBC 10^3/ul Nucleated RBC % INR (Anticoag Therapy) (0.77-1.02) APTT (26.0-36.3) seconds Sodium (135-145) mmol/L Potassium (3.5-5.0) mmol/L Chloride (101-111) mmol/L Carbon Dioxide (22-32) mmol/L Anion Gap (2-11) mmol/L BUN (6-24) mg/dL Creatinine (0.67-1.17) mg/dL Est GFR ( Amer) (>60) Est GFR (Non-Af Amer) (>60) BUN/Creatinine Ratio (8-20) Glucose (70-100) mg/dL Lactic Acid 1.1 (0.5-2.0) mmol/L Calcium (8.6-10.3) mg/dL Magnesium (1.9-2.7) mg/dL Total Bilirubin (0.2-1.0) mg/dL AST (13-39) U/L ALT (7-52) U/L Alkaline Phosphatase (34-104) U/L C-Reactive Protein (<8.01) mg/L Total Protein (6.4-8.9) g/dL Albumin (3.2-5.2) g/dL Globulin (2-4) g/dL Albumin/Globulin Ratio (1-3) Amylase (29-103) U/L Lipase (11.0-82.0) U/L Urine Color Yellow Urine Appearance Clear Urine pH 5.0 (5-9) Ur Specific [place] 1.017 (1.010-1.030) Urine Protein Negative (Negative) Urine Ketones Negative (Negative) Urine Blood 1+ A (Negative) Urine Nitrate Negative (Negative) Urine Bilirubin Negative (Negative) Urine Urobilinogen Negative (Negative) Ur Leukocyte Esterase Negative (Negative) Urine WBC (Auto) Absent (Absent) Urine RBC (Auto) Trace(0-2/hpf) (Absent) Urine Bacteria Absent (Absent) Urine Glucose Negative (Negative) Result Diagrams: 08/08/17 01:36 08/08/17 01:36 Lab Statement: Any lab studies that have been ordered have been reviewed, and results considered in the medical decision making process. - CT CT abd/pel CT Interpretation Completed By: Radiologist - Posoperative changes of cholecystectomy, including fluid and gas bubbles in gallbladder fossa and minimal emphysema in upper abdominal wall. Questionable thin capsule around the gallbladder fossa fluid collection raises possibility of developing abscess or infected biloma. Correlate with surgical and advise continued followup. Cirrhotic liver. Borderline splenomegaly. Small perihepatic ascites. No bowel obstruction, colitis, or diverticulitis. Appendix not seen with certainty. At least one diverticulum sigmoid colon. Unremarkable pancreas and kidneys. Small right pleural effusion, CAD. Reviewed by physician, pending official report. Re-Evaluation - Re-Evaluation First Eval Re-Evaluation Time: 04:20 Comment: Upon entering room, pt was asleep. He states pain is still present and that he was, "Sleeping to forget the pain". Pt was informed that he would be given pain medication. Abdominal Pain Fem Course/Dx - Course Assessment/Plan: Pt is a 61 y/o male c/o right abdominal pain suddenly onsetting this morning with radiation to right posterior neck and right shoulder , described as severe, and rated 10/10. He claims pain does not worsen w/ lifting. He reports constipation and denies fever, nausea, and abnormal gaseousness. PSHx of cholecystectomy this week and was discharged home w/ pain medication. Per triage, pt reports taking 5/325 mg at 1900 which provided no relief. PE showed diffuse abdominal tenderness on right side, distention. and hypoactive bowel sounds. In ED course, pt received hydromorphone 1 mg IV slow push twice, metoclopramide 10 mg IV, potassium chloride, and fluids. CT abd/pel received and reviewed above. Dr. Langford was consulted at 0410 and it was decided to provide pain medication and re-evaluate the pt. Discussed care of patient w/ Dr. Langford at 0436 again who would like to get a HIDA scan and will see pt in morning. Pt was diagnosed with abdominal pain and will be signed out to Dr. Avila pending disposition awaiting ADRIENNE scan and surgery consult in ED. - Diagnoses Provider Diagnoses: Abdominal pain in male - Provider Notifications Discussed Care Of Patient With: Bry Langford Time Discussed With Above Provider: 04:10 Instructed by Provider To: Other - It was decided to provide pain medication and re-evaluate the pt. Discussed care of patient w/ Dr. Langford at 0436, who would like to get a HIDA scan and will see pt in morning. Discharge - Sign-Out/Discharge Documenting (check all that apply): Sign-Out Patient Signing out patient TO: Hernesto Avila - Discharge Plan Referrals: Wendie Seymour, BUILDING ECONOMIST [Primary Care Provider] - The documentation as recorded by the Amor canseco Jacob accurately reflects the service I personally performed and the decisions made by me, Joseph Michael MD.
--- NOTE | 2017-08-08 08:27 | RAD ---
CLINICAL HISTORY: Right-sided abdominal pain. Relevant surgical history includes recent cholecystectomy. COMPARISON: None TECHNIQUE: Contrast enhanced CT examination of the abdomen and pelvis from the lung bases through the initial tuberosities. The patient received 115 mL Omnipaque 300 intravenously prior to imaging.The patient received oral contrast as well prior to imaging. FINDINGS: VISUALIZED LUNG BASES: There is a small right-sided pleural effusion. There is linear density at the dependent right lower lobe consistent with compressive atelectasis. There is a trace pleural effusion at the left lower lobe. ABDOMEN AND PELVIS: The service of the liver appears nodular. There are no suspicious liver masses. There is no intrahepatic biliary duct dilatation. There is a small amount of perihepatic fluid. The main portal vein is top normal measuring 1.6 cm in diameter. The gallbladder is surgically absent. There are clips in the gallbladder fossa. There is a fluid collection in the gallbladder fossa with multiple foci of gas. There is also subcutaneous gas overlying the right of midline epigastric area, perhaps a trocar site. The spleen is mildly enlarged measuring 12.8 cm in greatest dimension. The pancreas and adrenal glands are grossly normal in appearance. The kidneys are normal in appearance without focal mass, calcification or signs of hydronephrosis. Evaluation of the gastrointestinal tract is limited without oral contrast. The small and large bowel are not distended. The appendix is not discretely visualized and there are surgical material adjacent to the base of the cecum. There is no mesenteric lymphadenopathy. Retroperitoneal lymph nodes are top normal in dimension measuring up to 9 mm in short axis diameter (for example axial image 41). The pelvic viscera is normal in appearance. The abdominal aorta and iliac arteries are normal in course and diameter. Degenerative changes include multilevel loss of intervertebral disc height involving the lower thoracic and lumbar spine.There are no sinister bone lesions. IMPRESSION: 1. There is a fluid collection in the gallbladder fossa with multiple foci of gas which could be an early abscess or biloma depending on the patient's clinical presentation. 2. The nodular surface of the liver is consistent with cirrhosis. The portal vein is top normal in diameter measuring 16 mm and there is mild splenomegaly. Please correlate to LFTs and/or signs or symptoms of portal venous hypertension. 3. Additional chronic and degenerative changes described in body the report.
--- NOTE | 2017-08-08 11:21 | RAD ---
Indication: Status post cholecystectomy. Assess for bile leak. Comparison: August 08, 2017 CT. Technique: 6.300 mCi of Tc-99m Choletec was injected IV. Serial anterior images of the abdomen were obtained immediately following radiopharmaceutical administration to 60 minutes. Report: There is normal hepatic uptake and excretion of the radiopharmaceutical with bowel activity visualized at approximately 30 minutes confirming patency of the common bile duct. Minimal linear accumulation of activity at the level of the gallbladder fossa without generalized peritoneal dispersal is most consistent with retrograde propagation of radiopharmaceutical within the cystic duct. IMPRESSION: No compelling evidence for presence of a bile leak.
[2017-08-08] MEDS ORDERED: Ondansetron ODT TAB* 4 MG SL PRN (16:32)
[2017-08-08] MEDS ORDERED: Acetaminophen TAB* 325 MG PO PRN (16:32)
[2017-08-08] MEDS ORDERED: Metoclopramide IV* 5 MG/ML 2 ML VIAL IV PRN (16:33)
--- NOTE | 2017-08-08 17:24 | ED ---
Mason Harrison Tiffany, scribed for Hernesto Avila on 08/08/17 at 1236 . Progress - Progress Note Progress Note: Patient signed out from Dr. Michael, awaiting HIDA scan and surgery consult, pending disposition plan. HIDA scan, per radiologist, shows No compelling evidence for presence of a bile leak. ED physician has reviewed this report. Re-Evaluation - Re-Evaluation First Eval Re-Evaluation Time: 04:20 Comment: Upon entering room, pt was asleep. He states pain is still present and that he was, "Sleeping to forget the pain". Pt was informed that he would be given pain medication. Course/Dx - Course Course Of Treatment: 61 y/o M complains of right side abdominal pain since this morning. Patient signed out from Dr. Michael, awaiting HIDA scan and surgery consult, pending disposition. Patient will be admitted to Dr. Escalante, surgery. - Diagnoses Provider Diagnoses: Abdominal pain Discharge - Sign-Out/Discharge Documenting (check all that apply): Discharge/Admit/Transfer - Admit - Discharge Plan Condition: Fair Disposition: ADMITTED TO [facility] - Billing Disposition and Condition Condition: FAIR Disposition: Admitted to [facility] The documentation as recorded by the Mason canseco Tiffany accurately reflects the service I personally performed and the decisions made by , Hernesto Avila.
[2017-08-08] MEDS ORDERED: Ketorolac INJ* 30 MG/ML 1 ML VIAL IV PUSH PRN (17:39)
[2017-08-08] MEDS ORDERED: Zosyn per Pharmacy* NOTE FOLLOW UP SCH (18:00)
[2017-08-08] MEDS: D5W 1/2 NS KCl 20 Meq 1000 ML* 1,000 ML IV SCH (18:16)
[2017-08-08] MEDS: HYDROmorphone INJ* 2 MG/ML CARPUJECT SYRINGE IV SLOW PU PRN ×3 (18:21→23:41)
[2017-08-08] MEDS ORDERED: Piperacillin/Tazobac ADVAN(*) 3.375 GM in NS 0.9% 100 ML* 100 ML IVPB ONE (18:30)
[2017-08-08] MEDS: Docusate CAP* 100 MG PO SCH (19:22)
[2017-08-08] MEDS: Magnesium Hydroxide LIQ* 30 ML UDC PO PRN (19:22)
--- NOTE | 2017-08-08 23:16 | PN ---
Progress Note - Progress Note Date of Service: 08/08/17 Note: Surgery Updated H&P: S: asked by ED to see this 61 yo male, 3 d s/p lap cholecystectomy for acute gangrenous cholecystitis, d/c'd to home on 08/06 after removal of VIKAS drain. Patient states his pain level was 4 out of 10 when he was discharged. He was using Percocet 2 q 6 hr. Around mid-day on Sunday, he began to feel worsening RUQ pain, radiating to his Right shoulder. By 11 pm he was having "100" out of 10 pain and returned to the ED. He states that his pain is the same now, despite 4 doses of Dilaudid 1 mg each. He denies Nausea or vomiting, fever or chills, or change in the color of his urine. O: afeb; VSS (slightly hypertensive) Gen: WN, WD, agitated, but in NAD HEENT: mm dry; no scleral icterus Heart: reg Lungs: clear Abd: lap sites and VIKAS drain site clean; no infection; steristrips intact. Soft, but with exquisite tenderness in the RUQ w/ Trivedi's sign; decreased tenderness in the RLQ; no appreciable tenderness on the Left. No CVAT. No masses. Labs: Laboratory Tests 08/04/17 08/08/17 08/08/17 17:36 01:36 01:36 WBC 10.5 Hgb 11.1 L Hct 33 L Sodium 139 Potassium 3.2 L Chloride 100 L Magnesium 1.5 L Total Bilirubin 0.70 AST 21 ALT 17 Alkaline Phosphatase 150 H C-Reactive Protein 59.90 H 84.18 H Amylase 15 L Lipase < 10 L Imaging: (personally reviewed) Exam Date: 08/08/17435 ADM Status: REG ER Order Information: NM HEPATOBIL VISUAL SCAN-HIDA Accession Number: [id number] CPT: 61292 Indication: Status post cholecystectomy. Assess for bile leak. Comparison: August 08, 2017 CT. Technique: 6.300 mCi of Tc-99m Choletec was injected IV. Serial anterior images of the abdomen were obtained immediately following radiopharmaceutical administration to 60 minutes. Report: There is normal hepatic uptake and excretion of the radiopharmaceutical with bowel activity visualized at approximately 30 minutes confirming patency of the common bile duct. Minimal linear accumulation of activity at the level of the gallbladder fossa without generalized peritoneal dispersal is most consistent with retrograde propagation of radiopharmaceutical within the cystic duct. IMPRESSION: No compelling evidence for presence of a bile leak. Order Information: CT ABD/PEL W Accession Number: [id number] CPT: 30000 CLINICAL HISTORY: Right-sided abdominal pain. Relevant surgical history includes recent cholecystectomy. COMPARISON: None TECHNIQUE: Contrast enhanced CT examination of the abdomen and pelvis from the lung bases through the initial tuberosities. The patient received 115 mL Omnipaque 300 intravenously prior to imaging.The patient received oral contrast as well prior to imaging. FINDINGS: VISUALIZED LUNG BASES: There is a small right-sided pleural effusion. There is linear density at the dependent right lower lobe consistent with compressive atelectasis. There is a trace pleural effusion at the left lower lobe. ABDOMEN AND PELVIS: The service of the liver appears nodular. There are no suspicious liver masses. There is no intrahepatic biliary duct dilatation. There is a small amount of perihepatic fluid. The main portal vein is top normal measuring 1.6 cm in diameter. The gallbladder is surgically absent. There are clips in the gallbladder fossa. There is a fluid collection in the gallbladder fossa with multiple foci of gas. There is also subcutaneous gas overlying the right of midline epigastric area, perhaps a trocar site. The spleen is mildly enlarged measuring 12.8 cm in greatest dimension. The pancreas and adrenal glands are grossly normal in appearance. The kidneys are normal in appearance without focal mass, calcification or signs of hydronephrosis. Evaluation of the gastrointestinal tract is limited without oral contrast. The small and large bowel are not distended. The appendix is not discretely visualized and there are surgical material adjacent to the base of the cecum. There is no mesenteric lymphadenopathy. Retroperitoneal lymph nodes are top normal in dimension measuring up to 9 mm in short axis diameter (for example axial image 41). The pelvic viscera is normal in appearance. The abdominal aorta and iliac arteries are normal in course and diameter. Degenerative changes include multilevel loss of intervertebral disc height involving the lower thoracic and lumbar spine.There are no sinister bone lesions. IMPRESSION: 1. There is a fluid collection in the gallbladder fossa with multiple foci of gas which could be an early abscess or biloma depending on the patient's clinical presentation. 2. The nodular surface of the liver is consistent with cirrhosis. The portal vein is top normal in diameter measuring 16 mm and there is mild splenomegaly. Please correlate to LFTs and/or signs or symptoms of portal venous hypertension. 3. Additional chronic and degenerative changes described in body the report. Impression: 3 d s/p cholecystectomy w/ increased pain. Based on presentation, a limited bile leak seems most likely. Plan: discussed w/ Dr. Garcia. Will admit for pain control; cover empirically w / IV abx (Zosyn); recheck labs in a.m. I will make him NPO after MN in the unlikely event that he is not improving and requires return to the OR or percutaneous drain by IR.
[2017-08-08] MEDS: ZOSYN 3.375 GM Q8H per EXTENDED INFUSION IVPB SCH ×2 (23:44)
[2017-08-09] MEDS: HYDROmorphone INJ* 2 MG/ML CARPUJECT SYRINGE IV SLOW PU PRN ×5 (01:42→11:16)
[2017-08-09] MEDS: D5W 1/2 NS KCl 20 Meq 1000 ML* 1,000 ML IV SCH ×3 (01:44→23:08)
[2017-08-09 07:05] LABS: Hematocrit 32 % (42-52); Hemoglobin 10.4 g/dl (14.0-18.0); Mean Corpuscular HGB Conc 33 g/dl (31-36); Mean Corpuscular Hemoglobin 28 pg (27-31); Mean Corpuscular Volume 84 fL (80-94); Mean Platelet Volume 8.7 um3 (7.4-10.4); Platelet Count 278 10^3/ul (150-450); Red Blood Count 3.73 10^6/ul (4.00-5.40); Red Cell Distribution Width 17 % (10.5-15); White Blood Count 19.3 10^3/ul (3.5-10.8)
[2017-08-09 07:22] LABS: EGFR Non-African American 89.5 (>60)
[2017-08-09 07:28] LABS: ABS Basophils 0 10^3/ul (0-0.2); ABS Eosinophils 0.3 10^3/ul (0-0.6); ABS Lymphocytes 1.4 10^3/ul (1.0-4.8); ABS Monocytes 1.6 10^3/ul (0-0.8); ABS Neutrophils 15.9 10^3/ul (1.5-7.7); ABS Nucleated RBC 0 10^3/ul; Eosinophil % 1.3 % (0-6); Lymphocyte % 7.2 % (25-47); Nucleated Red Blood Cells % 0.1
[2017-08-09] MEDS: ZOSYN 3.375 GM Q8H per EXTENDED INFUSION IVPB SCH ×4 (08:57→17:04)
[2017-08-09] MEDS: Docusate CAP* 100 MG PO SCH (09:57)
[2017-08-09] MEDS ORDERED: Midazolam* 1 MG/ML 2 ML VIAL (2 MG) ONE (12:42)
[2017-08-09] MEDS ORDERED: fentaNYL* 50 MCG/ML 2 ML VIAL (100 MCG VIAL) ONE (12:42)
[2017-08-09] MEDS ORDERED: Bupivacaine 0.5% SDV PF* 30ML VIAL ONE (13:42)
[2017-08-09] MEDS ORDERED: Lidocaine 1% MPF wEPI 200,000* 30 ML SDV ONE (13:42)
[2017-08-09] MEDS ORDERED: Dexamethasone IV* 4 MG/ML 1 ML (4 MG) ONE (14:40)
[2017-08-09] MEDS ORDERED: Lidocaine 2% PF * 5 ML VIAL ONE (14:58)
[2017-08-09] MEDS ORDERED: Naloxone* 0.4 MG/ML 1 ML VIAL IV PRN ×2 (15:24→18:25)
[2017-08-09] MEDS ORDERED: fentaNYL* 50 MCG/ML 2 ML VIAL (100 MCG VIAL) IV PRN (15:24)
[2017-08-09] MEDS ORDERED: Ondansetron ODT TAB* 4 MG PO PRN (15:24)
[2017-08-09] MEDS ORDERED: HYDROmorphone INJ* 0.5 MG/0.5 ML SYRINGE IV PRN (15:24)
[2017-08-09] MEDS ORDERED: oxyCODONE/Acetamin 5/325 MG* TAB PO PRN (16:54)
[2017-08-09] MEDS: HYDROmorphone INJ* 0.5 MG/0.5 ML SYRINGE IV SLOW PU PRN ×3 (17:03→22:42)
[2017-08-09] MEDS: Ketorolac INJ* 30 MG/ML 1 ML VIAL IV PUSH SCH (18:24)
[2017-08-10] MEDS: Ketorolac INJ* 30 MG/ML 1 ML VIAL IV PUSH SCH ×5 (00:21→23:56)
[2017-08-10] MEDS: ZOSYN 3.375 GM Q8H per EXTENDED INFUSION IVPB SCH ×8 (00:23→23:56)
--- NOTE | 2017-08-10 03:14 | OP ---
DATE OF OPERATION: 08/09/17 - ROOM #332 DATE OF : 57. SURGEON: Jorge Luis Garcia MD. ORE WASHER: Erika Al NP. ANESTHESIOLOGIST: Ken John MD. ANESTHESIA: General anesthetic, local infiltration. PRE-OP DIAGNOSIS: Abdominal pain post laparoscopic cholecystectomy. POST-OP DIAGNOSES: Abdominal pain post laparoscopic cholecystectomy secondary to bile leak. OPERATIVE PROCEDURE: Diagnostic laparoscopy with peritoneal lavage and placement of drains. DESCRIPTION OF PROCEDURE: The patient supine on the operating room table. After adequate general anesthetic, compression stockings and Marie Hugger warmer , the abdomen was prepped with antiseptic, draped in a sterile fashion. The previous epigastric incision was opened and a blunt port cannula was placed. Insufflation was carried out with carbon dioxide. The additional right upper quadrant and right anterior axillary line cannula were also reentered. There was evidence of bile leak with bile up over the liver and in the gallbladder fossa. This was suctioned out and irrigated. A total of 3 to 4 L of irrigation were carried out. It appeared to be leaking from the cystic duct stump below where the clip was, perhaps the clip was creating a little bit a pinching which was creating a little hole, but it seemed to be seeping out from under the clip. So, a clip was placed just below this area. Additional irrigation was carried. No additional leaks could be identified. Free fluid was suctioned out and the VIKAS drain was brought out through the lateral site and placed down to the gallbladder fossa, sutured to the skin with Prolene. The larger incision was closed with 0 Vicryl and 5-0 Vicryl for the skin in both cases followed by sterile dressings and Steri-Strips. He tolerated the procedure well and brought to the Recovery in good condition. No complications. Drain is Luis-Díaz. Sponge and instrument counts correct. Estimated blood loss less than 30 mL. [id number]/[facility] #: [id number] [facility]
[2017-08-10] MEDS: HYDROmorphone INJ* 0.5 MG/0.5 ML SYRINGE IV SLOW PU PRN ×3 (04:04→20:04)
[2017-08-10 06:46] LABS: ABS Basophils 0 10^3/ul (0-0.2); ABS Eosinophils 0 10^3/ul (0-0.6); ABS Lymphocytes 0.7 10^3/ul (1.0-4.8); ABS Monocytes 1.1 10^3/ul (0-0.8); ABS Neutrophils 18.7 10^3/ul (1.5-7.7); ABS Nucleated RBC 0 10^3/ul; Eosinophil % 0 % (0-6); Hematocrit 27 % (42-52); Hemoglobin 8.9 g/dl (14.0-18.0); Lymphocyte % 3.4 % (25-47); Mean Corpuscular HGB Conc 34 g/dl (31-36); Mean Corpuscular Hemoglobin 28 pg (27-31); Mean Corpuscular Volume 84 fL (80-94); Mean Platelet Volume 8.7 um3 (7.4-10.4); Nucleated Red Blood Cells % 0; Platelet Count 265 10^3/ul (150-450); Red Blood Count 3.17 10^6/ul (4.00-5.40); Red Cell Distribution Width 16 % (10.5-15); White Blood Count 20.5 10^3/ul (3.5-10.8)
[2017-08-10 07:08] LABS: EGFR Non-African American 95.8 (>60)
[2017-08-10] MEDS: D5W 1/2 NS KCl 20 Meq 1000 ML* 1,000 ML IV SCH (08:14)
[2017-08-10] MEDS: Docusate CAP* 100 MG PO SCH (08:16)
[2017-08-10] MEDS: oxyCODONE/Acetamin 5/325 MG* TAB PO PRN ×3 (08:16→22:03)
[2017-08-10] MEDS: Magnesium Hydroxide LIQ* 30 ML UDC PO PRN (08:18)
--- NOTE | 2017-08-10 09:21 | PN ---
Progress Note - Progress Note Date of Service: 08/10/17 Note: S: POD #1 from return to OR for washout of bile leak; VIKAS drain. He feels better - pain level down to 5/10. Naif diet. Passing flatus. No BM since last Sunday. Taking both colace and MOM. Pt seen w/ Dr. Garcia. O: Vital Signs - 8 hr 08/10/17 08/10/17 08/10/17 03:49 04:04 05:15 Temperature 97.6 F Pulse Rate 69 Respiratory 16 14 16 Rate Blood Pressure 114/74 (mmHg) O2 Sat by Pulse 90 Oximetry 08/10/17 08/10/17 08/10/17 07:22 08:14 08:16 Temperature 97.6 F Pulse Rate 59 Respiratory 14 16 16 Rate Blood Pressure 119/80 (mmHg) O2 Sat by Pulse 95 95 Oximetry Intake and Output Last 24 Hours 08/08/17 08/09/17 08/10/17 08/11/17 06:59 06:59 06:59 06:59 Intake Total 1000 1425 3496 Output Total 0 405 Balance 1000 1425 3091 Weight 190 lb 190 lb Intake: IV Fluids 8071 781 0989 D5W 1/2 NS 20 meq KCL 985 1496 LR 1000 IVPB 200 300 ABX - ZOSYN 200 300 Oral 240 700 Output: VIKAS #1 80 Urine 0 325 Other: Estimated Void Large Medium # Bowel Movements 0 # Voids 1 1 Gen: NAD Heart:reg Lungs: clear; good resp effort Abd: bilious drainage in VIKAS; lap sites ok; +BS; soft; mild to mod tenderness RUQ. Labs: Laboratory Tests 08/09/17 08/10/17 08/10/17 06:44 06:16 06:16 WBC 19.3 H 20.5 H Hgb 10.4 L 8.9 L Sodium 137 Potassium 4.5 Chloride 104 BUN 14 Creatinine 0.82 Glucose 175 H Total Bilirubin 0.50 AST 16 ALT 12 Alkaline Phosphatase 145 H A: s/p bile leak (post cholecystectomy), improving P: cont IV abx; pain control; VIKAS (discussed going home w/ drain on po abx- poss tomorrow; he is agreeable; will send Rx for Augmentin to his pharmacy; he has sufficient Percocet left to cover til his f/u on .)
[2017-08-10] MEDS ORDERED: Magnesium CITRATE* 300 ML BTL PO PRN (09:31)
--- NOTE | 2017-08-10 10:42 | PN ---
Progress Note - Progress Note Date of Service: 08/10/17 SOAP: Subjective: Femi is a 61 male who is post op day 1 for bile leak washout and placement of VIKAS drain. He reports a pain level of 4/10 in his URQ. He is tolerating solid food, passing flatus and had a bowel movement this morning at 9am and notes that is was almost black in color. He has no other complaints at this time. Objective: Vital Signs - 8 hr 08/10/17 08/10/17 08/10/17 05:15 07:22 08:14 Temperature 97.6 F Pulse Rate 59 Respiratory 16 14 16 Rate Blood Pressure 119/80 (mmHg) O2 Sat by Pulse 95 95 Oximetry 08/10/17 08/10/17 08/10/17 08:16 10:11 11:54 Temperature 97.5 F Pulse Rate 57 Respiratory 16 15 14 Rate Blood Pressure 125/69 (mmHg) O2 Sat by Pulse 94 Oximetry Intake & Output 08/09/17 08/10/17 08/10/17 22:59 06:59 14:59 Intake Total 1600 300 120 Output Total 60 345 60 Balance 1540 -45 60 PE: General: Patient appears well and in no current distress. Cardiovascular: Regular rate and rhythm. No murmurs, rubs, or gallops noted. Respiratory: breath sounds appear effortless and are clear to auscultation bilaterally. Abdominal: no masses noted on palpation. the patient winces upon palpation on the right side of the abdomen. VIKAS drain in place, minimal drainage noted ( patient says that it was drained within the past hour) Assessment: Status post cholecystectomy (08/05/17) status post bile leak washout (08/09). He is improving and his pain has decreased since the washout. Plan: Continue pain control. Discharge tomorrow and follow up appointment on Sunday with Darwin Cox.
--- NOTE | 2017-08-10 21:29 | CONS ---
GASTROENTEROLOGY CONSULT: DATE: 08/10/17 CONSULTING PHYSICIAN: Jorge Luis Garcia REASON FOR CONSULTATION: Bile duct leak after complex cholecystectomy on . HISTORY: This 61-year-old man with a history of alcoholism and hepatitis C ( cleared in 2014 with negative viral titer in followup) came in with right upper quadrant pain on 08/04/17. He had a cholecystectomy, which was difficult. He required reexploration and a small amount of bile was seen coming from near the cystic duct stump. He was thoroughly washed out and a drain placed. Overnight, he has done well with no fever and today, his bowel sounds are positive and he has passed gas and had a bowel movement. He actually was hungry and ate a complete breakfast. This morning, he had about 60 cc of bile in his Luis-Díaz Drain. Since that was discarded about 2 and a half hours ago, he passed about 10 cc more. At this time, he states he is feeling pretty good. He is, however, frustrated and had told his nurse and others that he did not want to leave until everything was done and his drains were out. PAST MEDICAL HISTORY: 1. Alcoholism. 2. Hepatitis C - his INRs in 2014 were normal at 1.03 and his highest ALT in 2013 was 60, though since November 2014, they have all been in the teens except for minimal elevation on the day of admission for his cholecystectomy when it was 31. His bilirubin had been around 3 in June 2014 - apparently when he was receiving treatment for the hepatitis C. 3. Prior tobacco abuse. 4. Hypertension. MEDICATIONS: At home: Naproxen 500 h.s. Docusate. Milk of magnesia p.r.n. REVIEW OF SYSTEMS: He was admitted for syncope 3 years ago and nothing in particular was found. He does have some psoriasis. Chest x-rays in 2014 were negative. There is no history of seizures, CVA, MS, hemoptysis, TB, other viral hepatitis. He did have a colonoscopy in November 2006 by me with removal of a tubular adenoma from the rectum. EXAM: He is a healthy appearing, middle-aged man, sitting in bed, conversing with his nurse. He appears well. He is afebrile. He has no adenopathy. His lungs are clear and heart sounds are normal. The abdomen has a drain protruding from the left side. There is minimal fluid in it. He has just completed eating a full breakfast with eggs and a muffin. Bowel sounds are normal. He notes that he just had a normal bowel movement, the first in 6 days. He has no edema. IMPRESSION: This 61-year-old man who 5 days ago had a cholecystectomy and then just a day ago reexploration, lavage, and placement of a Luis-Díaz drain appears to be doing quite well. His LFTs are normal and he does not have any signs of persisting peritonitis. He is on antibiotics. With the drain in place , situation should be under control and the volume of the drainage can be monitored. Placing a stent at ERCP would appear to be premature at this point as there is a good chance it will not prove necessary. [id number]/[facility] #: [id number] PAUL
[2017-08-11] MEDS: HYDROmorphone INJ* 0.5 MG/0.5 ML SYRINGE IV SLOW PU PRN ×2 (04:16→07:20)
[2017-08-11] MEDS: Ketorolac INJ* 30 MG/ML 1 ML VIAL IV PUSH SCH ×4 (06:40→23:51)
[2017-08-11] MEDS: oxyCODONE/Acetamin 5/325 MG* TAB PO PRN ×3 (07:27→20:43)
[2017-08-11] MEDS: Docusate CAP* 100 MG PO SCH (07:28)
[2017-08-11] MEDS: ZOSYN 3.375 GM Q8H per EXTENDED INFUSION IVPB SCH ×6 (07:58→23:51)
--- NOTE | 2017-08-11 08:22 | PN ---
Progress Note - Progress Note Date of Service: 08/11/17 Note: POD#2 s/p bile leak Afeb, VS OK Voiding, cyndie po's, passed BM Pain control OK VIKAS drainage moderate, still quite bilious Abd soft, still mild diffuse tenderness Impr: s/p bile leak cont iv ABX cont VIKAS Pain control
[2017-08-11] MEDS ORDERED: amLODIPine TAB* 5 MG PO ONE (22:10)
--- NOTE | 2017-08-11 22:18 | CONSULT ---
Consult Consult: PCP: Jared Seymour NP Surgery: Deonte Langford MD Date/Time: 08/11/2017 2200 Reason for Consult: HTN HPI: Mr Kahn is a 61YO male admitted for management of a post- cholecystectomy bile leak whose blood pressures have been trending up throughout the day. He has been on a blood pressure medicine in the past which he self-D/C'd due to facial redness/flushing, but no SOB, swelling, wheezing or other issues. He denies any symptomotology, specifically no chest pain, SOB, nausea, sweating, palpitations, or light-headedness. PMedHx chronic hepatitis C HTN HX blood transfusion bile leak s/p cholecystectomy Pre-admission Outpatient Medications oxyCODONE/Acetamin 5/325 MG* [Percocet 5/325 TAB*] 2 tab PO Q6H PRN #30 tab MDD 8 08/06/17 Naproxen [Naproxen 500 mg tab] 1 tab PO BEDTIME 08/08/17 Acetaminophen TAB* [Tylenol TAB*] 650 mg PO Q4H PRN tab 08/10/17 Amoxicillin/Clavulanate TAB* [Augmentin TAB 875*] 875 mg PO BID #28 tab Docusate CAP* [Colace Cap*] 200 mg PO DAILY cap 08/10/17 Magnesium Hydroxide LIQ* [Milk of Magnesia LIQ*] 30 ml PO BID PRN udc 08/10/17 Active Inpatient Medications Acetaminophen (Tylenol Tab*) 650 mg PO Q4H PRN PRN Reason: mild pain or fever Docusate Sodium (Colace Cap*) 200 mg PO DAILY [facility] Last Admin: 08/11/17 07:28 Dose: 200 mg Hydromorphone HCl (Dilaudid Inj*) 2 mg IV SLOW PU Q2H PRN PRN Reason: PAIN Last Admin: 08/11/17 04:16 Dose: 2 mg Potassium Chloride/Dextrose (D5w 1/2 Ns Kcl 20 Meq 1000 Ml*) 1,000 mls @ 150 mls/hr IV PER RATE [facility] Last Admin: 08/10/17 08:14 Dose: 150 mls/hr Piperacillin Sod/Tazobactam (Sod 3.375 gm/ Sodium Chloride) 100 mls @ 25 mls/ hr IVPB Q8H [facility] Last Admin: 08/11/17 16:14 Dose: 25 mls/hr Ketorolac Tromethamine (Toradol Inj*) 30 mg IV PUSH Q6H [facility] Last Admin: 08/11/17 18:03 Dose: 30 mg Magnesium Citrate (Citrate Of Magnesia*) 150 ml PO ONCE PRN PRN Reason: Constipation; may repeat x 1 Magnesium Hydroxide (Milk Of Magnesia Liq*) 30 ml PO BID PRN PRN Reason: CONSTIPATION Last Admin: 08/10/17 08:18 Dose: 30 ml Metoclopramide HCl (Reglan Iv*) 10 mg IV Q6H PRN PRN Reason: NAUSEA/VOMITING Ondansetron HCl (Zofran Odt Tab*) 4 mg SL Q6H PRN PRN Reason: NAUSEA/VOMITING Oxycodone/Acetaminophen (Percocet 5/325 Tab*) 1 tab PO Q4H PRN PRN Reason: PAIN - MILD Oxycodone/Acetaminophen (Percocet 5/325 Tab*) 2 tab PO Q4H PRN PRN Reason: PAIN - SEVERE Last Admin: 08/11/17 20:43 Dose: 2 tab Pharmacy Consult (Zosyn Per Pharmacy*) 1 note FOLLOW UP .ZOSYN PER PHARMACY [facility] Allergies No Known Allergies Allergy (Verified 08/07/17 23:48) PSurgHx cholecystectomy complicated by bile leak now w/ VIKAS drain SocHx: active smoker w/ >30PYHX, moderate alcohol, HX drug use but denies currently; FamHx: reviewed, non-contributory to current situation ROS: as above, otherwise reviewed and all were negative vitals: Vital Signs Temp 36.4 C 08/11/17 15:07 Pulse 53 08/11/17 20:43 Resp 16 08/11/17 20:43 BP 176/89 08/11/17 20:43 Pulse Ox 99 08/11/17 20:43 Constitutional: NAD, normally developed, well-nourished white male HEENM: atraumatic; sclera/conjunctiva: anicteric/clear; hearing: clinically intact; oropharynx: clear, mucosa moist Neck: soft tissue: non-tender; thyroid: normal Pulmonary: clear to auscultation bilaterally, good aeration, no accessory muscle use CV: RR/RR, normal S1S2, no carotid bruit, no jugular venous distention, 2+ B DP/ PT, trace BLE edema Abdominal: soft, non-distended, non-tender, no rebound/guarding/rigidity, normoactive bowel sounds, no hepatosplenomegaly or masses, no costovertebral angle tenderness; R abdominal VIKAS draining dark green fluid consistent with bile Musculoskeletal: general: grossly intact, generally deconditioning; gait: stable Integumental: normal appearance and texture of exposed skin Psychiatric orientation: AA&O to PPS affect: calm mood: cooperative eye contact: good content: reliable responses: timely insight: good Impression: 61M admitted for management of post-cholecystectomy bile leak with HTN DIAGNOSIS & PLAN Primary post-cholecystectomy bile leak : management per surgery Secondary HTN, asymptomatic : start amlodipine 5mg tonight and then QAM, trend : will need to f/u w/ PCP w/i 1 month of D/C with a list of blood pressures to review
[2017-08-12 05:46] LABS: Hematocrit 31 % (42-52); Mean Corpuscular HGB Conc 33 g/dl (31-36); Mean Corpuscular Hemoglobin 27 pg (27-31); Mean Corpuscular Volume 83 fL (80-94); Mean Platelet Volume 8.5 um3 (7.4-10.4); Platelet Count 368 10^3/ul (150-450); Red Cell Distribution Width 17 % (10.5-15); White Blood Count 11.5 10^3/ul (3.5-10.8)
[2017-08-12] MEDS: Ketorolac INJ* 30 MG/ML 1 ML VIAL IV PUSH SCH ×4 (05:53→23:37)
[2017-08-12] MEDS ORDERED: hydrALAZINE IV* 20 MG/ML VIAL IV SLOW PU PRN (07:40)
--- NOTE | 2017-08-12 07:47 | PN ---
Subjective Date of Service: 08/12/17 Interval History: Mr. Kahn reports continued abdominal pain, though it is improving. He notes greater pain on the right side of his abdomen. He denies chest pain or SOB. He notes being on lisinopril on the past for his blood pressure but stopped after developing sudden onset angioedema a few months ago. Objective Active Medications: Acetaminophen (Tylenol Tab*) 650 mg PO Q4H PRN Amlodipine Besylate (Norvasc Tab*) 5 mg PO DAILY [facility] Docusate Sodium (Colace Cap*) 200 mg PO DAILY [facility] Hydralazine HCl (Apresoline Iv*) 5 mg IV SLOW PU Q6H PRN Hydromorphone HCl (Dilaudid Inj*) 2 mg IV SLOW PU Q2H PRN Potassium Chloride/Dextrose (D5w 1/2 Ns Kcl 20 Meq 1000 Ml*) 1,000 mls @ 150 mls/hr IV PER RATE [facility] Piperacillin Sod/Tazobactam (Sod 3.375 gm/ Sodium Chloride) 100 mls @ 25 mls/ hr IVPB Q8H [facility] Ketorolac Tromethamine (Toradol Inj*) 30 mg IV PUSH Q6H [facility] Magnesium Citrate (Citrate Of Magnesia*) 150 ml PO ONCE PRN Magnesium Hydroxide (Milk Of Magnesia Liq*) 30 ml PO BID PRN Metoclopramide HCl (Reglan Iv*) 10 mg IV Q6H PRN Ondansetron HCl (Zofran Odt Tab*) 4 mg SL Q6H PRN Oxycodone/Acetaminophen (Percocet 5/325 Tab*) 1 tab PO Q4H PRN Oxycodone/Acetaminophen (Percocet 5/325 Tab*) 2 tab PO Q4H PRN Pharmacy Consult (Zosyn Per Pharmacy*) 1 note FOLLOW UP .ZOSYN PER [facility]Y [facility] Vital Signs: Temp Pulse Resp BP Pulse Ox 97.5 F 56 18 161/89 99 08/12/17 03:49 08/12/17 03:49 08/12/17 07:15 08/12/17 03:49 08/12/17 03:49 Oxygen Devices in Use Now: None Appearance: Male lying in bed in NAD Eyes: No Scleral Icterus Ears/Nose/Mouth/Throat: Mucous Membranes Moist Neck: Trachea Midline Respiratory: Symmetrical Chest Expansion and Respiratory Effort, Clear to Auscultation Cardiovascular: NL Sounds; No Murmurs; No JVD, No Edema Abdominal: - - Soft, tender to palpation, R > L Extremities: No Edema Skin: - - abd lap sites with steri strips, no erythema or drainage Neurological: Alert and Oriented x 3, NL Muscle Strength and Tone Result Diagrams: 08/12/17 05:23 08/12/17 05:23 Additional Lab and Data: . Assess/Plan/Problems-Billing Assessment: Ms. Kahn is a 61 yo male with a PMH of hypertension not on home meds who was discharged on 08/06/17 after cholecystectomy for acute gangrenous cholecystitis who was re-admitted on 08/08/17 s/p cholecystectomy with bile leak by the surgical team for whom Hospital Medicine has been consulted for uncontrolled hypertension. - Patient Problems (1) Bile leak, postoperative Comment: - Management per surgery. - S/P ex lap for washout and placement of VIKAS drain. - Tolerating diet. (2) HTN (hypertension) Comment: - Amlodipine started, SBP 160s. - Hydralazine available prn for SBP > 180. (3) Chronic hepatitis C Comment: - Noted. (4) DVT prophylaxis Comment: - SCDs. (5) Full code status Comment: Status and Disposition: Inpatient. Disposition per Surgery.
--- NOTE | 2017-08-12 08:26 | PN ---
Progress Note - Progress Note Date of Service: 08/12/17 SOAP: Subjective: C/o pain in R side. No N/V. Tolerating po. Feels he could manage drain at home. Objective: Vital Signs Temp 97.5 F 08/12/17 03:49 Pulse 56 08/12/17 03:49 Resp 18 08/12/17 07:15 BP 161/89 08/12/17 03:49 Pulse Ox 99 08/12/17 03:49 Sleeping, arousable. NAD. Abd: +BS; VIKAS with bilious o/p; soft; tender R side; incisions c/d/i; no erythema. Intake & Output 08/11/17 08/12/17 08/12/17 18:59 06:59 18:59 Intake Total 100 1554 Output Total 70 60 Balance 30 1494 Intake: IV Fluids 100 30 NS (0.9%) 30 IVPB 204 ABX - ZOSYN 204 Oral 1320 Output: VIKAS #1 70 60 Urine 0 Other: Estimated Void Medium Medium # Bowel Movements 1 Estimated Stool Amount Medium # Voids 2 1 Laboratory Results - last 24 hr 08/12/17 08/12/17 05:23 05:23 WBC 11.5 H RBC 3.70 L Hgb 10.0 L Hct 31 L MCV 83 MCH 27 MCHC 33 RDW 17 H Plt Count 368 MPV 8.5 Sodium 139 Potassium 3.8 Chloride 99 L Carbon Dioxide 32 Anion Gap 8 BUN 17 Creatinine 0.91 Est GFR ( Amer) 102.8 Est GFR (Non-Af Amer) 85.0 BUN/Creatinine Ratio 18.7 Glucose 84 Calcium 9.2 Total Bilirubin 0.50 AST 13 ALT 11 Alkaline Phosphatase 122 H C-Reactive Protein 105.46 H Total Protein 6.8 Albumin 2.9 L Globulin 3.9 Albumin/Globulin Ratio 0.7 L Lipase 90 H Assessment: POD#3 s/p dx lap for bile leak. Controlled and drained. Improving. Plan: Continue Abx, VIKAS Home AM.
[2017-08-12] MEDS: ZOSYN 3.375 GM Q8H per EXTENDED INFUSION IVPB SCH ×6 (08:29→23:40)
[2017-08-12] MEDS: amLODIPine TAB* 5 MG PO SCH (08:29)
[2017-08-12] MEDS: Docusate CAP* 100 MG PO SCH (08:29)
[2017-08-12] MEDS: oxyCODONE/Acetamin 5/325 MG* TAB PO PRN ×3 (08:35→20:25)
[2017-08-13] MEDS: oxyCODONE/Acetamin 5/325 MG* TAB PO PRN (01:02)
[2017-08-13 06:29] LABS: ABS Basophils 0.1 10^3/ul (0-0.2); ABS Eosinophils 0.4 10^3/ul (0-0.6); ABS Lymphocytes 2.3 10^3/ul (1.0-4.8); ABS Neutrophils 7.6 10^3/ul (1.5-7.7); ABS Nucleated RBC 0 10^3/ul; Eosinophil % 3.4 % (0-6); Hematocrit 33 % (42-52); Hemoglobin 10.7 g/dl (14.0-18.0); Lymphocyte % 20.2 % (25-47); Mean Corpuscular HGB Conc 32 g/dl (31-36); Mean Corpuscular Hemoglobin 27 pg (27-31); Mean Corpuscular Volume 83 fL (80-94); Mean Platelet Volume 8.1 um3 (7.4-10.4); Nucleated Red Blood Cells % 0.2; Platelet Count 398 10^3/ul (150-450); Red Blood Count 3.99 10^6/ul (4.00-5.40); Red Cell Distribution Width 17 % (10.5-15); White Blood Count 11.3 10^3/ul (3.5-10.8)
[2017-08-13 07:00] LABS: EGFR Non-African American 78.9 (>60)
--- NOTE | 2017-08-13 07:28 | PN ---
Subjective Date of Service: 08/13/17 Interval History: Mr. Kahn reports pain in his abdomen this morning, but no worse than it has been. He is frustrated at being in the hospital and not being able to sleep. He denies other complaint including chest pain, SOB. Objective Active Medications: Acetaminophen (Tylenol Tab*) 650 mg PO Q4H PRN Amlodipine Besylate (Norvasc Tab*) 5 mg PO DAILY [facility] Docusate Sodium (Colace Cap*) 200 mg PO DAILY [facility] Hydralazine HCl (Apresoline Iv*) 5 mg IV SLOW PU Q6H PRN Hydromorphone HCl (Dilaudid Inj*) 2 mg IV SLOW PU Q2H PRN Potassium Chloride/Dextrose (D5w 1/2 Ns Kcl 20 Meq 1000 Ml*) 1,000 mls @ 150 mls/hr IV PER RATE [facility] Piperacillin Sod/Tazobactam (Sod 3.375 gm/ Sodium Chloride) 100 mls @ 25 mls/ hr IVPB Q8H [facility] Ketorolac Tromethamine (Toradol Inj*) 30 mg IV PUSH Q6H [facility] Magnesium Citrate (Citrate Of Magnesia*) 150 ml PO ONCE PRN Magnesium Hydroxide (Milk Of Magnesia Liq*) 30 ml PO BID PRN Metoclopramide HCl (Reglan Iv*) 10 mg IV Q6H PRN Ondansetron HCl (Zofran Odt Tab*) 4 mg SL Q6H PRN Oxycodone/Acetaminophen (Percocet 5/325 Tab*) 1 tab PO Q4H PRN Oxycodone/Acetaminophen (Percocet 5/325 Tab*) 2 tab PO Q4H PRN Pharmacy Consult (Zosyn Per Pharmacy*) 1 note FOLLOW UP .ZOSYN PER PHARMACY [facility] Vital Signs: Temp Pulse Resp BP Pulse Ox 98.1 F 67 16 150/89 95 08/13/17 04:33 08/13/17 04:33 08/13/17 04:33 08/13/17 04:33 08/13/17 04:33 Oxygen Devices in Use Now: None Appearance: Male lying in bed in NAD Eyes: No Scleral Icterus Ears/Nose/Mouth/Throat: Mucous Membranes Moist Neck: Trachea Midline Respiratory: Symmetrical Chest Expansion and Respiratory Effort, Clear to Auscultation Cardiovascular: NL Sounds; No Murmurs; No JVD, No Edema Abdominal: - - soft, tender to palpation R > L, BS + Lymphatic: No Cervical Adenopathy Extremities: No Edema Skin: No Rash or Ulcers Neurological: Alert and Oriented x 3, NL Muscle Strength and Tone Nutrition: Taking PO's Result Diagrams: 08/13/17 06:02 08/13/17 06:02 Additional Lab and Data: . Assess/Plan/Problems-Billing Assessment: Ms. Kahn is a 61 yo male with a PMH of hypertension not on home meds who was discharged on 08/06/17 after cholecystectomy for acute gangrenous cholecystitis who was re-admitted on 08/08/17 s/p cholecystectomy with bile leak by the surgical team for whom Hospital Medicine has been consulted for uncontrolled hypertension. - Patient Problems (1) Bile leak, postoperative Comment: - Management per surgery. - S/P ex lap for washout and placement of VIKAS drain. - Tolerating diet. (2) HTN (hypertension) Comment: - Amlodipine started, SBP 150s. - Hydralazine available prn for SBP > 180. - Will likely need further titration of BP by PCP. (3) Chronic hepatitis C Comment: - Noted. (4) DVT prophylaxis Comment: - SCDs. (5) Full code status Comment: Status and Disposition: Inpatient. Disposition per Surgery.
[2017-08-13] MEDS: Ketorolac INJ* 30 MG/ML 1 ML VIAL IV PUSH SCH (08:29)
[2017-08-13] MEDS: ZOSYN 3.375 GM Q8H per EXTENDED INFUSION IVPB SCH ×2 (08:29)
--- NOTE | 2017-08-13 08:29 | PN ---
Progress Note - Progress Note Date of Service: 08/13/17 Note: S/p bile leak Feeling better, tho still needs pain meds Naif po's Comfortable managing VIKAS drain Abd benign Disch on po pain meds istop checked
[2017-08-13] MEDS: Docusate CAP* 100 MG PO SCH (08:30)
[2017-08-13] MEDS: amLODIPine TAB* 5 MG PO SCH (08:30)
[2017-08-13] MEDS ORDERED: HYDROmorphone TAB* 4 MG PO PRN (08:42)
[2017-08-13 11:39] VITALS: BP 160/81
--- NOTE | 2017-08-13 13:05 | DS ---
DISCHARGE SUMMARY: DATE OF ADMISSION: 08/08/17 DATE OF DISCHARGE: 08/13/17 PRINCIPAL ADMITTING DIAGNOSIS: Bile leak status post laparoscopic cholecystectomy for gangrenous cholecystitis. OPERATIVE PROCEDURE ON THIS ADMISSION: Laparoscopy and wash out of bile leak and placement of a drain. HOSPITAL COURSE: The patient was about 4 days out from a laparoscopic cholecystectomy for gangrenous cholecystitis. He presented back with increasing abdominal pain. He was found to have a bile leak and was taken to the operating room and had wash out and placement of a drain. No site of leak was identified. He was seen in consultation by Gastroenterology, who did not feel that placement of a stent via ERCP was warranted. His white count was 20, 000. He was treated with antibiotics and it came down to 10,000. He is discharged home on 08/13/17 tolerating oral intake, ambulating well, moving his bowels. His pain control was adequate, he is still requiring pain pills. He is learning to manage the drain. He will be discharged home with instructions and will follow up in the office in a few days. [id number]/[facility] #: [id number] MTDD
== END 2017-08-13 14:40 | disposition home or self-care (01) | DRG 252 ==
LOC: ED 23:42 → SSU 08-08 16:24 → OBSVTOIN 08-10 08:14
PROVIDERS: ADMIT Surgery; ATTEND Surgery
PROC: 0W9G40Z Drainage of Peritoneal Cavity with Drainage Device, Percutaneous Endoscopic Approach (ICD-10-PCS; principal; 2017-08-10)
PROC: 3E1M38Z Irrigation of Peritoneal Cavity using Irrigating Substance, Percutaneous Approach (ICD-10-PCS; 2017-08-10)
DX: K91.89 Other postprocedural complications and disorders of digestive system (principal); Y83.6 Removal of other organ (partial) (total) as the cause of abnormal reaction of the patient, or of later complication, without mention of misadventure at the time of the procedure; E78.00 Pure hypercholesterolemia, unspecified; I10 Essential (primary) hypertension; M10.9 Gout, unspecified; F41.9 Anxiety disorder, unspecified; F17.210 Nicotine dependence, cigarettes, uncomplicated; L40.9 Psoriasis, unspecified; B18.2 Chronic viral hepatitis C; Y92.9 Unspecified place or not applicable; Z90.49 Acquired absence of other specified parts of digestive tract; Z72.89 Other problems related to lifestyle
CPT/HCPCS: 36415; 74177; 78226; 80053; 81003; 81015; 82150; 83605; 83690; 83735; 85025; 85027; 85610; 85730; 86140; 99284; A9270-GY; A9537; J1100; J1170; J1885; J2001; J2250; J2543; J2765; J3010; Q9967

== ENCOUNTER 2023-02-06 12:36 | Inpatient (IN) ==
[2023-02-06] MEDS ORDERED: Lactated Ringers 1000 ml BAG 1,000 ML IV ONE (12:54)
[2023-02-06 13:41] LABS: ABS Basophils 0.1 10^3/uL (0.0-0.1); ABS Eosinophils 0.2 10^3/uL (0.0-0.5); ABS Lymphocytes 2.4 10^3/uL (1.0-4.8); ABS Monocytes 1.1 10^3/uL (0.0-1.1); ABS Neutrophils 5.8 10^3/uL (1.5-7.6); ABS Nucleated RBC 0.06 10^3/ul; Eosinophil % 2.5 %; Hematocrit 51.5 % (38-53); Hemoglobin 17.7 g/dL (13.2-16.3); Lymphocyte % 25.3 %; Mean Corpuscular Hemoglobin 30.4 pg (27-33); Mean Corpuscular Hgb Conc 34.4 g/dL (31-36); Mean Corpuscular Volume 88.4 fL (80-97); Mean Platelet Volume 9.8 fL (7.5-11.2); Nucleated Red Blood Cells % 0.6 %/100WBC (0.0-0.8); Platelet Count 226 10^3/uL (150-450); Red Blood Count 5.82 10^6/uL (4.06-5.63); Red Cell Distribution Width 13.3 % (12-17); White Blood Count 9.6 10^3/uL (3.6-10.2)
[2023-02-06 13:52] LABS: INR 1.25 (0.83-1.13)
[2023-02-06 13:58] LABS: Albumin 3.9 g/dL (3.2-5.2); Albumin/Globulin Ratio 1.2 (1-3); Creatinine, Serum 0.78 mg/dL (0.67-1.17); Direct Bilirubin 0.6 mg/dL (0.03-0.18); Globulin 3.3 g/dL (2-4); HDL Cholesterol 32.1 mg/dL; Indirect Bilirubin 1.2 mg/dL (0.3-1.0); Potassium 3.5 mmol/L (3.5-5.0); Total Bilirubin 1.8 mg/dL (0.2-1.0); Total Protein 7.2 g/dL (6.4-8.9); eGFR CKD-EPI 98.4 (>60)
[2023-02-06] MEDS ORDERED: Iodixanol (CONTRAST) 320 MG/ML 100 ML SDV IV ONE (14:03)
[2023-02-06 16:00] LABS: High Sensitivity Troponin 1 Hr 6 pg/mL (<20)
[2023-02-06] MEDS: Enoxaparin 40 MG/0.4 ML SYR SUBCUT SCH (16:05)
[2023-02-06 16:17] LABS: Magnesium 1.9 mg/dL (1.9-2.7)
[2023-02-06] MEDS ORDERED: Albuterol HFA INHALER 8 gm MDI INH PRN (17:00)
[2023-02-06] MEDS: Metoprolol Tartrate 5 mg VIAL 5 ml VIAL (1 mg/ml) IV PRN (18:40)
[2023-02-06] MEDS: Timolol 0.5% OPTH.SOL BTL BOTH EYES SCH (21:09)
[2023-02-06] MEDS: Latanoprost 0.005% 2.5 ml BTL BOTH EYES SCH (21:10)
[2023-02-07] MEDS: Metoprolol Tartrate 5 mg VIAL 5 ml VIAL (1 mg/ml) IV PRN (01:56)
[2023-02-07] MEDS: Timolol 0.5% OPTH.SOL BTL BOTH EYES SCH ×2 (07:56→23:02)
[2023-02-07 08:18] LABS: ABS Basophils 0.1 10^3/uL (0.0-0.1); ABS Eosinophils 0.2 10^3/uL (0.0-0.5); ABS Lymphocytes 2.2 10^3/uL (1.0-4.8); ABS Monocytes 1.4 10^3/uL (0.0-1.1); ABS Neutrophils 7.7 10^3/uL (1.5-7.6); ABS Nucleated RBC 0.08 10^3/ul; Eosinophil % 1.5 %; Hematocrit 53.7 % (38-53); Hemoglobin 18.1 g/dL (13.2-16.3); Lymphocyte % 19.1 %; Mean Corpuscular Hemoglobin 30.3 pg (27-33); Mean Corpuscular Hgb Conc 33.7 g/dL (31-36); Mean Corpuscular Volume 89.8 fL (80-97); Mean Platelet Volume 10.3 fL (7.5-11.2); Nucleated Red Blood Cells % 0.7 %/100WBC (0.0-0.8); Platelet Count 212 10^3/uL (150-450); Red Blood Count 5.97 10^6/uL (4.06-5.63); Red Cell Distribution Width 13.8 % (12-17); White Blood Count 11.5 10^3/uL (3.6-10.2)
[2023-02-07] MEDS ORDERED: FENOFIBRATE 145 MG PO SCH (09:00)
[2023-02-07 11:05] LABS: Anion Gap 14 mmol/L (2-16); Blood Urea Nitrogen 12 mg/dL (6-24); CO2 Carbon Dioxide 16 mmol/L (22-32); Chloride 102 mmol/L (101-111); Creatinine, Serum 0.67 mg/dL (0.67-1.17); Glucose 132 mg/dL (70-100); Sodium 132 mmol/L (135-145)
[2023-02-07 13:02] LABS: C Reactive Protein 42.27 mg/L (<8.01); Calcium 8.8 mg/dL (8.6-10.3); Magnesium 1.1 mg/dL (1.9-2.7); Potassium Redraw 3.2 mmol/L (3.5-5.0)
[2023-02-07] MEDS ORDERED: Sulfur Hexaflouride MICROSPHR 25 MG VIAL ONE (14:12)
[2023-02-07] MEDS ORDERED: Magnesium Sulf 4 GM/100 ML IV 4,000 MG/100 ML BAG IVPB ONE (14:31)
[2023-02-07] MEDS ORDERED: KCL 20 MEQ/100 ML IVPREMIX 20 MEQ/100 ML BAG IV SCH (15:00)
[2023-02-07] MEDS ORDERED: Potassium Chloride LIQUID 20 MEQ/15 ML LIQUID PO SCH (16:30)
[2023-02-07] MEDS: Enoxaparin 40 MG/0.4 ML SYR SUBCUT SCH (19:40)
[2023-02-07] MEDS: KCL 20 MEQ/100 ML IVPREMIX 20 MEQ/100 ML BAG IV SCH ×2 (19:47→23:01)
[2023-02-07] MEDS: Latanoprost 0.005% 2.5 ml BTL BOTH EYES SCH (23:02)
[2023-02-08 05:42] LABS: ABS Eosinophils 0.1 10^3/uL (0.0-0.5); ABS Lymphocytes 2.5 10^3/uL (1.0-4.8); ABS Monocytes 1.1 10^3/uL (0.0-1.1); ABS Neutrophils 5.9 10^3/uL (1.5-7.6); ABS Nucleated RBC 0.05 10^3/ul; Eosinophil % 1.3 %; Hematocrit 49.4 % (38-53); Hemoglobin 17.2 g/dL (13.2-16.3); Lymphocyte % 25.8 %; Mean Corpuscular Hemoglobin 30.7 pg (27-33); Mean Corpuscular Hgb Conc 34.9 g/dL (31-36); Mean Corpuscular Volume 87.9 fL (80-97); Mean Platelet Volume 10.3 fL (7.5-11.2); Nucleated Red Blood Cells % 0.5 %/100WBC (0.0-0.8); Platelet Count 226 10^3/uL (150-450); Red Blood Count 5.62 10^6/uL (4.06-5.63); Red Cell Distribution Width 13.6 % (12-17); White Blood Count 9.7 10^3/uL (3.6-10.2)
[2023-02-08 06:34] LABS: Calcium 9.2 mg/dL (8.6-10.3); Creatinine, Serum 0.69 mg/dL (0.67-1.17); Phosphorus 3.2 mg/dL (2.5-5.0); Potassium 4.4 mmol/L (3.5-5.0); eGFR CKD-EPI 102.1 (>60)
[2023-02-08] MEDS: Timolol 0.5% OPTH.SOL BTL BOTH EYES SCH ×2 (08:51→21:02)
[2023-02-08 12:23] LABS: C Reactive Protein 125.74 mg/L (<8.01)
[2023-02-08 13:11] LABS: Erythrocyte Sed Rate 26 mm/Hr (0-19)
[2023-02-08] MEDS: Enoxaparin 40 MG/0.4 ML SYR SUBCUT SCH (16:38)
[2023-02-08 19:40] LABS: Ferritin 232.8 ng/mL (24-336)
[2023-02-08] MEDS: Latanoprost 0.005% 2.5 ml BTL BOTH EYES SCH (21:02)
[2023-02-09 06:51] LABS: ABS Basophils 0.1 10^3/uL (0.0-0.1); ABS Eosinophils 0.2 10^3/uL (0.0-0.5); ABS Monocytes 0.9 10^3/uL (0.0-1.1); ABS Neutrophils 6.5 10^3/uL (1.5-7.6); ABS Nucleated RBC 0.08 10^3/ul; Eosinophil % 2.3 %; Hematocrit 49.8 % (38-53); Hemoglobin 17.1 g/dL (13.2-16.3); Lymphocyte % 20.9 %; Mean Corpuscular Hemoglobin 30.4 pg (27-33); Mean Corpuscular Hgb Conc 34.4 g/dL (31-36); Mean Corpuscular Volume 88.3 fL (80-97); Mean Platelet Volume 10.2 fL (7.5-11.2); Nucleated Red Blood Cells % 0.9 %/100WBC (0.0-0.8); Platelet Count 211 10^3/uL (150-450); Red Blood Count 5.64 10^6/uL (4.06-5.63); Red Cell Distribution Width 13.6 % (12-17); White Blood Count 9.7 10^3/uL (3.6-10.2)
[2023-02-09 07:10] LABS: Calcium 9.2 mg/dL (8.6-10.3); Creatinine, Serum 0.77 mg/dL (0.67-1.17); Magnesium 1.6 mg/dL (1.9-2.7); Phosphorus 2.7 mg/dL (2.5-5.0); Potassium 4.3 mmol/L (3.5-5.0); eGFR CKD-EPI 98.7 (>60)
[2023-02-09] MEDS: Metoprolol Tartrate 5 mg VIAL 5 ml VIAL (1 mg/ml) IV PRN (08:27)
[2023-02-09] MEDS: Timolol 0.5% OPTH.SOL BTL BOTH EYES SCH ×2 (10:48→21:47)
[2023-02-09] MEDS ORDERED: Magnesium Sulfate 2 gm BAG 2 GM/50 ML BAG IVPB ONE (11:21)
[2023-02-09] MEDS ORDERED: Ferric Gluconate IV 250 MG in NS 0.9% 250 ml 200 ML IVPB ONE (14:00)
[2023-02-09] MEDS: Ferric Gluconate IV 250 MG in NS 0.9% 250 ml 200 ML IVPB SCH (14:45)
[2023-02-09] MEDS: Latanoprost 0.005% 2.5 ml BTL BOTH EYES SCH (21:47)
[2023-02-10 06:50] LABS: Albumin 3.6 g/dL (3.2-5.2); Albumin/Globulin Ratio 1.1 (1-3); Calcium 8.6 mg/dL (8.6-10.3); Creatinine, Serum 0.6 mg/dL (0.67-1.17); Globulin 3.2 g/dL (2-4); Magnesium 1.7 mg/dL (1.9-2.7); Phosphorus 2.5 mg/dL (2.5-5.0); Potassium 3.9 mmol/L (3.5-5.0); Total Bilirubin 1.5 mg/dL (0.2-1.0); Total Protein 6.8 g/dL (6.4-8.9); eGFR CKD-EPI 106.5 (>60)
[2023-02-10] MEDS ORDERED: Magnesium Sulfate 2 gm BAG 2 GM/50 ML BAG IVPB ONE (07:21)
[2023-02-10 07:33] LABS: Hematocrit 48.3 % (38-53); Hemoglobin 16.6 g/dL (13.2-16.3); Mean Corpuscular Hemoglobin 30.2 pg (27-33); Mean Corpuscular Hgb Conc 34.4 g/dL (31-36); Mean Corpuscular Volume 87.7 fL (80-97); Mean Platelet Volume 10.4 fL (7.5-11.2); Platelet Count 225 10^3/uL (150-450); Red Cell Distribution Width 13.3 % (12-17); White Blood Count 9.1 10^3/uL (3.6-10.2)
[2023-02-10 07:34] LABS: ABS Basophils 0.5 10^3/uL (0.0-0.1); ABS Eosinophils 0.2 10^3/uL (0.0-0.5); ABS Lymphocytes 1.5 10^3/uL (1.0-4.8); ABS Monocytes 0.8 10^3/uL (0.0-1.1); ABS Neutrophils 6.1 10^3/uL (1.5-7.6); ABS Nucleated RBC 0.06 10^3/ul; Eosinophil % 2.2 %; Lymphocyte % 16.3 %; Nucleated Red Blood Cells % 0.7 %/100WBC (0.0-0.8)
[2023-02-10] MEDS: Timolol 0.5% OPTH.SOL BTL BOTH EYES SCH ×2 (10:39→22:27)
[2023-02-10] MEDS: Ferric Gluconate IV 250 MG in NS 0.9% 250 ml 200 ML IVPB SCH (10:40)
[2023-02-10] MEDS: Polyethylene Glycol 3350 17 GM PACKET PO SCH (11:48)
[2023-02-10] MEDS: Latanoprost 0.005% 2.5 ml BTL BOTH EYES SCH (22:26)
[2023-02-11 06:03] LABS: ABS Eosinophils 0.1 10^3/uL (0.0-0.5); ABS Lymphocytes 1.8 10^3/uL (1.0-4.8); ABS Neutrophils 6.5 10^3/uL (1.5-7.6); ABS Nucleated RBC 0.01 10^3/ul; Eosinophil % 1.6 %; Hematocrit 49.1 % (38-53); Hemoglobin 16.8 g/dL (13.2-16.3); Lymphocyte % 18.6 %; Mean Corpuscular Hemoglobin 30.3 pg (27-33); Mean Corpuscular Hgb Conc 34.1 g/dL (31-36); Mean Corpuscular Volume 88.7 fL (80-97); Nucleated Red Blood Cells % 0.1 %/100WBC (0.0-0.8); Platelet Count 218 10^3/uL (150-450); Red Blood Count 5.53 10^6/uL (4.06-5.63); Red Cell Distribution Width 13.3 % (12-17); White Blood Count 9.4 10^3/uL (3.6-10.2)
[2023-02-11 06:14] LABS: Calcium 8.7 mg/dL (8.6-10.3); Creatinine, Serum 0.6 mg/dL (0.67-1.17); Potassium 3.7 mmol/L (3.5-5.0); eGFR CKD-EPI 106.5 (>60)
[2023-02-11] MEDS: Polyethylene Glycol 3350 17 GM PACKET PO SCH (09:49)
[2023-02-11] MEDS: Timolol 0.5% OPTH.SOL BTL BOTH EYES SCH ×2 (09:49→22:53)
[2023-02-11] MEDS: Ferric Gluconate IV 250 MG in NS 0.9% 250 ml 200 ML IVPB SCH (12:49)
[2023-02-11] MEDS: Latanoprost 0.005% 2.5 ml BTL BOTH EYES SCH (22:52)
[2023-02-12 06:43] LABS: Hematocrit 53.9 % (38-53); Hemoglobin 18.1 g/dL (13.2-16.3); Mean Corpuscular Hemoglobin 30.1 pg (27-33); Mean Corpuscular Hgb Conc 33.6 g/dL (31-36); Mean Corpuscular Volume 89.7 fL (80-97); Mean Platelet Volume 10.3 fL (7.5-11.2); Platelet Count 216 10^3/uL (150-450); Red Blood Count 6.01 10^6/uL (4.06-5.63); Red Cell Distribution Width 13.3 % (12-17); White Blood Count 10.3 10^3/uL (3.6-10.2)
[2023-02-12 06:59] LABS: ABS Basophils 0.1 10^3/uL (0.0-0.1); ABS Eosinophils 0.1 10^3/uL (0.0-0.5); ABS Lymphocytes 1.4 10^3/uL (1.0-4.8); ABS Neutrophils 7.6 10^3/uL (1.5-7.6); ABS Nucleated RBC 0.05 10^3/ul; Eosinophil % 0.6 %; Lymphocyte % 13.9 %; Nucleated Red Blood Cells % 0.5 %/100WBC (0.0-0.8)
[2023-02-12 07:05] LABS: Potassium 4.6 mmol/L (3.5-5.0)
[2023-02-12 07:06] LABS: Albumin 3.8 g/dL (3.2-5.2); Albumin/Globulin Ratio 1.1 (1-3); Calcium 9.3 mg/dL (8.6-10.3); Creatinine, Serum 0.69 mg/dL (0.67-1.17); Globulin 3.5 g/dL (2-4); Magnesium 1.7 mg/dL (1.9-2.7); Phosphorus 3.3 mg/dL (2.5-5.0); Total Bilirubin 1.5 mg/dL (0.2-1.0); Total Protein 7.3 g/dL (6.4-8.9); eGFR CKD-EPI 102.1 (>60)
[2023-02-12] MEDS ORDERED: Magnesium Sulf 4 GM/100 ML IV 4,000 MG/100 ML BAG IVPB ONE (07:32)
[2023-02-12] MEDS: Ferric Gluconate IV 250 MG in NS 0.9% 250 ml 200 ML IVPB SCH (07:50)
[2023-02-12] MEDS: Timolol 0.5% OPTH.SOL BTL BOTH EYES SCH ×2 (08:32→21:13)
[2023-02-12] MEDS: Metoprolol Tartrate 5 mg VIAL 5 ml VIAL (1 mg/ml) IV PRN (08:35)
[2023-02-12] MEDS ORDERED: Influenza vaccine *QUAD* *2023-24* 0.5 ML SYRINGE IM ONE (09:00)
[2023-02-12] MEDS ORDERED: Pneumococcal Vac 23-Polyvalent IM ONE (09:00)
[2023-02-12] MEDS: Polyethylene Glycol 3350 17 GM PACKET PO SCH (11:31)
[2023-02-12] MEDS: Nicotine PATCH 7 MG/24 HR PATCH TRANSDERM SCH (18:27)
[2023-02-12] MEDS: Senna TAB 8.6 mg TAB PO PRN (21:11)
[2023-02-12] MEDS: Latanoprost 0.005% 2.5 ml BTL BOTH EYES SCH (21:13)
[2023-02-13 07:53] LABS: Hemoglobin 17.5 g/dL (13.2-16.3); Mean Corpuscular Hemoglobin 30.4 pg (27-33); Mean Corpuscular Hgb Conc 33.6 g/dL (31-36); Mean Corpuscular Volume 90.5 fL (80-97); Mean Platelet Volume 10.4 fL (7.5-11.2); Platelet Count 208 10^3/uL (150-450); Red Blood Count 5.75 10^6/uL (4.06-5.63); Red Cell Distribution Width 13.4 % (12-17); White Blood Count 10.4 10^3/uL (3.6-10.2)
[2023-02-13 08:09] LABS: IgG Immunoblot Positive (Negative); IgM Immunoblot Negative (Negative)
[2023-02-13] MEDS: Magnesium Sulfate IV 1GM/100ML 1 GM/100 ML BAG IV ONE ×3 (08:28→11:15)
[2023-02-13] MEDS: Polyethylene Glycol 3350 17 GM PACKET PO SCH (08:28)
[2023-02-13] MEDS: Nicotine PATCH 7 MG/24 HR PATCH TRANSDERM SCH ×2 (08:29→08:39)
[2023-02-13] MEDS: Senna TAB 8.6 mg TAB PO PRN (08:29)
[2023-02-13] MEDS: Timolol 0.5% OPTH.SOL BTL BOTH EYES SCH ×2 (08:39→21:20)
[2023-02-13 09:21] LABS: Albumin 3.6 g/dL (3.2-5.2); Calcium 9.5 mg/dL (8.6-10.3); Creatinine, Serum 0.93 mg/dL (0.67-1.17); Globulin 3.7 g/dL (2-4); Potassium 4.6 mmol/L (3.5-5.0); Total Bilirubin 1.6 mg/dL (0.2-1.0); Total Protein 7.3 g/dL (6.4-8.9); eGFR CKD-EPI 90.6 (>60)
[2023-02-13] MEDS ORDERED: Digoxin IV 0.5 MG/2 ML AMP (0.25 MG/ML) IV SLOW PU ONE (13:37)
[2023-02-13] MEDS: Digoxin IV 0.5 MG/2 ML AMP (0.25 MG/ML) IV SLOW PU SCH (21:18)
[2023-02-13] MEDS: Latanoprost 0.005% 2.5 ml BTL BOTH EYES SCH (21:19)
[2023-02-13] MEDS: Senna TAB 8.6 mg TAB PO SCH (21:19)
[2023-02-14] MEDS: Digoxin IV 0.5 MG/2 ML AMP (0.25 MG/ML) IV SLOW PU SCH (03:22)
[2023-02-14 05:59] LABS: ABS Basophils 0.1 10^3/uL (0.0-0.1); ABS Eosinophils 0.2 10^3/uL (0.0-0.5); ABS Lymphocytes 1.3 10^3/uL (1.0-4.8); ABS Monocytes 1.1 10^3/uL (0.0-1.1); ABS Neutrophils 6.7 10^3/uL (1.5-7.6); ABS Nucleated RBC 0.08 10^3/ul; Eosinophil % 2.2 %; Hematocrit 50.6 % (38-53); Hemoglobin 16.9 g/dL (13.2-16.3); Lymphocyte % 13.4 %; Mean Corpuscular Hemoglobin 30.1 pg (27-33); Mean Corpuscular Hgb Conc 33.4 g/dL (31-36); Mean Corpuscular Volume 89.9 fL (80-97); Mean Platelet Volume 10.2 fL (7.5-11.2); Nucleated Red Blood Cells % 0.9 %/100WBC (0.0-0.8); Platelet Count 215 10^3/uL (150-450); Red Blood Count 5.63 10^6/uL (4.06-5.63); Red Cell Distribution Width 13.3 % (12-17); White Blood Count 9.3 10^3/uL (3.6-10.2)
[2023-02-14 07:05] LABS: Calcium 9.1 mg/dL (8.6-10.3); Creatinine, Serum 0.62 mg/dL (0.67-1.17); Magnesium 1.9 mg/dL (1.9-2.7); eGFR CKD-EPI 105.4 (>60)
[2023-02-14 08:14] LABS: Albumin 3.5 g/dL (3.2-5.2); Direct Bilirubin 0.4 mg/dL (0.03-0.18); Globulin 3.4 g/dL (2-4); Indirect Bilirubin 0.6 mg/dL (0.3-1.0); Total Protein 6.9 g/dL (6.4-8.9)
[2023-02-14] MEDS ORDERED: Sulfur Hexaflouride MICROSPHR 25 MG VIAL ONE (08:40)
[2023-02-14] MEDS: Timolol 0.5% OPTH.SOL BTL BOTH EYES SCH ×2 (09:35→21:05)
[2023-02-14] MEDS: Polyethylene Glycol 3350 17 GM PACKET PO SCH (09:36)
[2023-02-14] MEDS: Nicotine PATCH 7 MG/24 HR PATCH TRANSDERM SCH ×2 (09:36→09:40)
[2023-02-14] MEDS: Latanoprost 0.005% 2.5 ml BTL BOTH EYES SCH (21:04)
[2023-02-14] MEDS: Senna TAB 8.6 mg TAB PO SCH (21:05)
[2023-02-15 08:09] LABS: ABS Eosinophils 0.1 10^3/uL (0.0-0.5); ABS Lymphocytes 1.8 10^3/uL (1.0-4.8); ABS Neutrophils 7.1 10^3/uL (1.5-7.6); ABS Nucleated RBC 0.03 10^3/ul; Hematocrit 49.9 % (38-53); Lymphocyte % 17.6 %; Mean Corpuscular Volume 88.4 fL (80-97); Mean Platelet Volume 9.8 fL (7.5-11.2); Nucleated Red Blood Cells % 0.3 %/100WBC (0.0-0.8); Platelet Count 268 10^3/uL (150-450); Red Blood Count 5.65 10^6/uL (4.06-5.63); Red Cell Distribution Width 13.2 % (12-17)
[2023-02-15 08:48] LABS: Calcium 9.6 mg/dL (8.6-10.3); Creatinine, Serum 0.71 mg/dL (0.67-1.17); Potassium 4.7 mmol/L (3.5-5.0); eGFR CKD-EPI 101.2 (>60)
[2023-02-15] MEDS: Timolol 0.5% OPTH.SOL BTL BOTH EYES SCH ×2 (10:24→21:36)
[2023-02-15] MEDS: Nicotine PATCH 7 MG/24 HR PATCH TRANSDERM SCH (10:30)
[2023-02-15] MEDS: Polyethylene Glycol 3350 17 GM PACKET PO SCH ×2 (10:30→12:27)
[2023-02-15] MEDS ORDERED: HYDROmorphone 1 MG/1 ML SYRINGE IV SLOW PU ONE (17:01)
[2023-02-15 17:22] LABS: Hematocrit 47.6 % (38-53); Hemoglobin 16.8 g/dL (13.2-16.3); Mean Corpuscular Hemoglobin 30.5 pg (27-33); Mean Corpuscular Hgb Conc 35.2 g/dL (31-36); Mean Corpuscular Volume 86.6 fL (80-97); Mean Platelet Volume 9.5 fL (7.5-11.2); Platelet Count 290 10^3/uL (150-450); Red Blood Count 5.49 10^6/uL (4.06-5.63); Red Cell Distribution Width 13.4 % (12-17); White Blood Count 10.1 10^3/uL (3.6-10.2)
[2023-02-15 17:42] LABS: C Reactive Protein 125.05 mg/L (<8.01); Uric Acid 4.7 mg/dL (4.4-7.6)
[2023-02-15] MEDS ORDERED: Morphine ORAL CONCENTRATE 5 MG/0.25 ML ORAL.SYRIN SL PRN ×2 (21:00)
[2023-02-15] MEDS: Senna TAB 8.6 mg TAB PO SCH (21:35)
[2023-02-15] MEDS: Latanoprost 0.005% 2.5 ml BTL BOTH EYES SCH (21:36)
[2023-02-16 09:24] LABS: TSH Ultra Thyroid Stim Horm 6.9 mcIU/mL (0.34-5.60)
[2023-02-16 09:25] LABS: Free T4 0.95 ng/dL (0.61-1.12)
[2023-02-16 09:37] VITALS: BP 118/88
[2023-02-16] MEDS: Polyethylene Glycol 3350 17 GM PACKET PO SCH (09:37)
[2023-02-16] MEDS: Nicotine PATCH 7 MG/24 HR PATCH TRANSDERM SCH (09:45)
[2023-02-16] MEDS: Timolol 0.5% OPTH.SOL BTL BOTH EYES SCH (10:03)
[2023-02-16 11:14] LABS: Rapid COVID-19 Molecular Undetected (Undetected)
== END 2023-02-16 14:50 | DRG 64 ==
LOC: ED 12:36 → EDHOLD 12:36 → MEDTELE 15:39 → SUATTDRO 15:39 → MEDTELE 16:04 → SUATTDRO 02-08 12:01
PROVIDERS: ADMIT Internal Medicine; ATTEND Hospitalist

== ENCOUNTER 2023-07-17 20:31 | Inpatient (IN) ==
[2023-07-17 21:31] LABS: INR 1.51 (0.83-1.13)
[2023-07-17 21:34] LABS: ABS Eosinophils 0.1 10^3/uL (0.0-0.5); ABS Lymphocytes 2.7 10^3/uL (1.0-4.8); ABS Monocytes 0.6 10^3/uL (0.0-1.1); ABS Neutrophils 4.4 10^3/uL (1.5-7.6); ABS Nucleated RBC 0.04 10^3/ul; Eosinophil % 1.8 %; Hematocrit 48.7 % (38-53); Hemoglobin 16.6 g/dL (13.2-16.3); Lymphocyte % 34.5 %; Mean Corpuscular Volume 88.4 fL (80-97); Mean Platelet Volume 10.6 fL (7.5-11.2); Nucleated Red Blood Cells % 0.5 %/100WBC (0.0-0.8); Platelet Count 178 10^3/uL (150-450); Red Blood Count 5.52 10^6/uL (4.06-5.63); Red Cell Distribution Width 15.7 % (12-17)
[2023-07-17 22:02] LABS: Albumin/Globulin Ratio 1.4 (1-3); Calcium 9.4 mg/dL (8.6-10.3); Creatinine, Serum 0.79 mg/dL (0.67-1.17); Globulin 2.8 g/dL (2-4); Potassium 3.8 mmol/L (3.5-5.0); Total Bilirubin 1.8 mg/dL (0.2-1.0); Total Protein 6.8 g/dL (6.4-8.9)
[2023-07-17 22:51] LABS: High Sensitivity Troponin 1 Hr 28 pg/mL (<20)
[2023-07-18] MEDS: Iohexol 350 (CONTRAST) 500 ML MDV IV ONE (00:16)
[2023-07-18] MEDS: Furosemide 40 mg/4 ml IV VIAL IV SLOW PU ONE ×2 (00:20→15:01)
[2023-07-18] MEDS: Metoprolol Tartrate 5 mg VIAL 5 ml VIAL (1 mg/ml) IV ONE (00:30)
[2023-07-18] MEDS ORDERED: Sulfur Hexaflouride MICROSPHR 25 MG VIAL IV ONE (04:29)
[2023-07-18] MEDS: Furosemide 40 mg/4 ml IV VIAL IV ONE (05:32)
[2023-07-18] MEDS: Albuterol HFA INHALER 8 gm MDI INH SCH (06:23)
[2023-07-18 10:18] LABS: ABS Basophils 0.1 10^3/uL (0.0-0.1); ABS Eosinophils 0.2 10^3/uL (0.0-0.5); ABS Lymphocytes 2.6 10^3/uL (1.0-4.8); ABS Monocytes 0.8 10^3/uL (0.0-1.1); ABS Neutrophils 5.4 10^3/uL (1.5-7.6); ABS Nucleated RBC 0.04 10^3/ul; Hematocrit 48.4 % (38-53); Hemoglobin 16.4 g/dL (13.2-16.3); Lymphocyte % 29.1 %; Mean Corpuscular Hgb Conc 33.9 g/dL (31-36); Mean Corpuscular Volume 88.6 fL (80-97); Mean Platelet Volume 10.5 fL (7.5-11.2); Nucleated Red Blood Cells % 0.4 %/100WBC (0.0-0.8); Platelet Count 180 10^3/uL (150-450); Red Blood Count 5.46 10^6/uL (4.06-5.63); Red Cell Distribution Width 15.9 % (12-17); White Blood Count 9.1 10^3/uL (3.6-10.2)
[2023-07-18] MEDS: Polyethylene Glycol 3350 17 GM PACKET PO SCH (10:41)
[2023-07-18 10:56] LABS: Anion Gap 11 mmol/L (2-16); Blood Urea Nitrogen 18 mg/dL (6-24); CO2 Carbon Dioxide 28 mmol/L (22-32); Calcium 9.5 mg/dL (8.6-10.3); Chloride 102 mmol/L (101-111); Creatinine, Serum 0.85 mg/dL (0.67-1.17); Glucose 120 mg/dL (70-100); Magnesium 1.4 mg/dL (1.9-2.7); Sodium 141 mmol/L (135-145); eGFR CKD-EPI 95.8 (>60)
[2023-07-18] MEDS: Magnesium Sulf 4 GM/100 ML IV 4,000 MG/100 ML BAG IVPB ONE (11:37)
[2023-07-18] MEDS: Potassium Chlor 20 meq TAB.ER PO ONE (12:52)
[2023-07-18] MEDS: Magnesium Sulfate 2 gm BAG 2 GM/50 ML BAG IVPB ONE (18:02)
[2023-07-18] MEDS ORDERED: Albuterol HFA INHALER 8 gm MDI INH PRN (23:58)
[2023-07-19] MEDS ORDERED: Furosemide 40 mg/4 ml IV VIAL IV SCH ×2 (09:00)
[2023-07-19] MEDS: Magnesium Sulfate 2 gm BAG 2 GM/50 ML BAG IVPB ONE (10:53)
[2023-07-19] MEDS ORDERED: Naloxone 0.4 mg VIAL 0.4 mg/ml 1 ml VIAL ONE (13:27)
[2023-07-19] MEDS ORDERED: Flumazenil 0.5 mg/5 ml 0.1 MG/ML 5 ml VIAL ONE (13:27)
[2023-07-19] MEDS ORDERED: Midazolam 5 mg/5 ml VIAL 1 mg/ml 5 ml VIAL (5 mg) ONE (13:27)
[2023-07-19] MEDS ORDERED: fentaNYL 100 mcg/2 ml 50 MCG/ML VIAL ONE (13:27)
[2023-07-19] MEDS: Potassium Chlor 20 meq TAB.ER PO ONE (14:26)
[2023-07-19] MEDS: Furosemide 40 mg/4 ml IV VIAL IV SLOW PU ONE (14:26)
[2023-07-19] MEDS ORDERED: Lorazepam PYXIS KEY PRN (17:02)
[2023-07-19] MEDS ORDERED: LORazepam 2 MG/ML 1 mL Syringe IV PRN (17:02)
[2023-07-19] MEDS: diazePAM INJ CARPUJECT 5 MG/ML SYRINGE IV ONE (21:58)
[2023-07-20] MEDS: fentaNYL 100 mcg/2 ml 50 MCG/ML VIAL IV SLOW PU ONE (14:57)
[2023-07-20] MEDS: Midazolam 10 mg/10 ml VIAL 1 mg/ml 10 ml VIAL (10 mg) IV SLOW PU ONE (14:58)
[2023-07-21] MEDS: Magnesium Sulf 4 GM/100 ML IV 4,000 MG/100 ML BAG IVPB ONE (19:43)
[2023-07-23] MEDS: Benzocaine/Menthol LOZ PO ONE (02:47)
[2023-07-23 05:25] VITALS: BP 140/92
== END 2023-07-23 18:10 | disposition home health service (06) | DRG 292 ==
LOC: ED 20:31 → EDHOLD 20:31 → SUATTDRO 07-18 04:37 → MEDTELE 07-18 13:48 → SUATTDRO 07-20 14:01
PROVIDERS: ADMIT Internal Medicine; ATTEND Family Medicine

== ENCOUNTER 2024-02-22 19:05 | Inpatient (IN) ==
[2024-02-22] MEDS: fentaNYL 100 mcg/2 ml 50 MCG/ML VIAL IV SLOW PU ONE (20:04)
[2024-02-22 20:06] LABS: ABS Eosinophils 0.1 10^3/uL (0.0-0.5); ABS Monocytes 1.1 10^3/uL (0.0-1.1); ABS Neutrophils 13.2 10^3/uL (1.5-7.6); ABS Nucleated RBC 0.01 10^3/ul; Eosinophil % 0.4 %; Hematocrit 50.2 % (38-53); Hemoglobin 16.5 g/dL (13.2-16.3); Lymphocyte % 21.9 %; Mean Corpuscular Hemoglobin 30.6 pg (27-33); Mean Corpuscular Volume 92.7 fL (80-97); Mean Platelet Volume 10.4 fL (7.5-11.2); Nucleated Red Blood Cells % 0.1 %/100WBC (0.0-0.8); Platelet Count 206 10^3/uL (150-450); Red Blood Count 5.41 10^6/uL (4.06-5.63); Red Cell Distribution Width 15.1 % (12-17); White Blood Count 18.5 10^3/uL (3.6-10.2)
[2024-02-22 20:15] LABS: Urine Appearance Clear; Urine Bacteria Absent /HPF (Absent); Urine Bilirubin Negative (Negative); Urine Blood 1+ (Negative); Urine Color Yellow; Urine Glucose 4+ (>=1000 mg/dL) (Negative); Urine Ketones Trace (Negative); Urine Nitrite Negative (Negative); Urine Protein 1+ (>=30 mg/dL) (Negative); Urine Red Blood Cell 2+(6-10/hpf) /HPF (0-Trace); Urine Squamous Epithelial Cell Present /HPF (Absent); Urine Urobilinogen 1+ (Negative); Urine White Blood Cell Trace(0-5/hpf) /HPF (0-Trace); Urine pH 5.5 (5.0-8.0)
[2024-02-22 20:28] LABS: ALT 28 U/L (7-52); AST 29 U/L (13-39); Albumin 4.7 g/dL (3.5-5.7); Albumin/Globulin Ratio 1.7 (1-3); Alcohol, S < 13 mg/dL (<13); Alkaline Phosphatase 101 U/L (35-149); Anion Gap 23 mmol/L (2-16); Blood Urea Nitrogen 33 mg/dL (6-24); C Reactive Protein 1.54 mg/L (<8.01); CO2 Carbon Dioxide 17 mmol/L (22-32); Calcium 10.7 mg/dL (8.6-10.3); Chloride 101 mmol/L (101-111); Creatine Kinase 32 U/L (10-223); Digoxin 0.7 ng/ml (0.8-2.0); Globulin 2.8 g/dL (2-4); Glucose 180 mg/dL (70-100); Magnesium 2.2 mg/dL (1.9-2.7); Sodium 141 mmol/L (135-145); Total Bilirubin 1.1 mg/dL (0.2-1.0); Total Protein 7.5 g/dL (6.4-8.9); eGFR CKD-EPI 66.3 (>60)
[2024-02-23] MEDS: Iodixanol 320 (CONTRAST) 100 ML SDV IV ONE (01:10)
[2024-02-23] MEDS: Albuterol HFA INHALER 8 gm MDI INH SCH ×2 (02:00→11:00)
[2024-02-23 02:42] LABS: Calcium 9.9 mg/dL (8.6-10.3); Creatinine, Serum 1.02 mg/dL (0.67-1.17); Potassium 4.2 mmol/L (3.5-5.0); eGFR CKD-EPI 80.6 (>60)
[2024-02-23] MEDS ORDERED: Albuterol HFA INHALER 8 gm MDI INH PRN (11:05)
[2024-02-23 11:30] LABS: ABS Basophils 0.1 10^3/uL (0.0-0.1); ABS Eosinophils 0.1 10^3/uL (0.0-0.5); ABS Lymphocytes 3.1 10^3/uL (1.0-4.8); ABS Monocytes 0.9 10^3/uL (0.0-1.1); ABS Neutrophils 7.9 10^3/uL (1.5-7.6); ABS Nucleated RBC 0.01 10^3/ul; Hemoglobin 14.7 g/dL (13.2-16.3); Lymphocyte % 25.5 %; Mean Corpuscular Hemoglobin 30.4 pg (27-33); Mean Corpuscular Hgb Conc 34.2 g/dL (31-36); Mean Corpuscular Volume 89.1 fL (80-97); Mean Platelet Volume 9.4 fL (7.5-11.2); Platelet Count 138 10^3/uL (150-450); Red Blood Count 4.83 10^6/uL (4.06-5.63); Red Cell Distribution Width 14.8 % (12-17)
[2024-02-23 11:52] LABS: Calcium 9.3 mg/dL (8.6-10.3); Creatinine, Serum 0.82 mg/dL (0.67-1.17); Magnesium 1.8 mg/dL (1.9-2.7); Potassium 3.5 mmol/L (3.5-5.0); eGFR CKD-EPI 96.3 (>60)
[2024-02-23] MEDS: Timolol 0.5% OPTH.SOL BTL BOTH EYES SCH (14:07)
[2024-02-23 14:40] LABS: Free T4 0.68 ng/dL (0.61-1.12)
[2024-02-23] MEDS: Potassium Chloride LIQUID 20 MEQ/15 ML LIQUID PO ONE (14:48)
[2024-02-23] MEDS: Magnesium Sulfate 2 gm BAG 2 GM/50 ML BAG IVPB ONE (14:48)
[2024-02-23] MEDS: Metoprolol Tartrate 5 mg VIAL 5 ml VIAL (1 mg/ml) IV ONE (17:34)
[2024-02-23] MEDS: Metoprolol Tartrate 5 mg VIAL 5 ml VIAL (1 mg/ml) IV PRN (17:53)
[2024-02-23] MEDS: Latanoprost 0.005% 2.5 ml BTL BOTH EYES SCH (20:09)
[2024-02-23] MEDS: Senna TAB 8.6 mg TAB PO SCH (20:09)
[2024-02-24 17:43] LABS: Hematocrit 43.3 % (38-53); Hemoglobin 14.9 g/dL (13.2-16.3); Mean Corpuscular Hgb Conc 34.5 g/dL (31-36); Mean Corpuscular Volume 89.8 fL (80-97); Platelet Count 137 10^3/uL (150-450); Red Blood Count 4.82 10^6/uL (4.06-5.63); Red Cell Distribution Width 14.6 % (12-17); White Blood Count 10.3 10^3/uL (3.6-10.2)
[2024-02-24 18:28] LABS: Albumin/Globulin Ratio 1.7 (1-3); Calcium 9.2 mg/dL (8.6-10.3); Creatinine, Serum 0.86 mg/dL (0.67-1.17); Globulin 2.4 g/dL (2-4); Magnesium 1.9 mg/dL (1.9-2.7); Phosphorus 3.7 mg/dL (2.5-5.0); Potassium 3.8 mmol/L (3.5-5.0); Total Bilirubin 0.7 mg/dL (0.2-1.0); Total Protein 6.4 g/dL (6.4-8.9); eGFR CKD-EPI 94.9 (>60)
[2024-02-25 07:31] LABS: Calcium 9.4 mg/dL (8.6-10.3); Creatinine, Serum 0.79 mg/dL (0.67-1.17); Magnesium 1.8 mg/dL (1.9-2.7); Potassium 4.1 mmol/L (3.5-5.0); eGFR CKD-EPI 97.4 (>60)
[2024-02-25] MEDS: Magnesium Sulfate 2 gm BAG 2 GM/50 ML BAG IVPB ONE (09:27)
[2024-02-25] MEDS ORDERED: Sulfur Hexaflouride MICROSPHR 25 MG VIAL ONE (10:03)
[2024-02-25] MEDS: Sulfur Hexaflouride MICROSPHR 25 MG VIAL IV PRN (10:09)
[2024-02-26 10:42] VITALS: BP 112/88
== END 2024-02-26 14:00 | disposition home health service (06) | DRG 922 ==
LOC: ED 19:05 → EDHOLD 19:05 → SUATTDRO 22:32 → SSU 02-23 00:25
PROVIDERS: ADMIT Internal Medicine; ATTEND Internal Medicine